=== PATIENT | female | born 1970 | race Caucasian/White ===

== ENCOUNTER 2024-01-22 20:01 | Inpatient (IN) | payer OTHER, SELFPAY ==
--- NOTE | ~2024-01-22 | XR_ITS ---
EXAMINATION: XR CHEST CLINICAL INFORMATION: Shortness of breath. Cough. COMPARISON: June 01, 2019. TECHNIQUE: PA view of the chest was obtained. FINDINGS: Limited evaluation of the retrocardiac region without the benefit of a lateral view; cannot confirm or exclude subtle retrocardiac focal infiltrate. No significant abnormality is noted involving the heart, remaining lungs, mediastinum, bony thorax or soft tissues. XR/XR chest 1V IMPRESSION: Findings as above. Electronically signed by: Mahesh Topete MD 01/22/2024 09:59 PM EDT
--- NOTE | ~2024-01-22 | XR_ITS ---
EXAMINATION: XR CHEST CLINICAL INFORMATION: Evaluation of retrocardiac opacity. COMPARISON: Chest radiograph 01/22/2024. TECHNIQUE: 2 views of the chest were obtained. FINDINGS: Normal appearance of the cardiomediastinal silhouette. Mild central peribronchial thickening without consolidation or pleural effusion. No pneumothorax. No acute osseous findings. XR/XR chest 2V IMPRESSION: Mild central peribronchial thickening which could be seen with a small airways process such as bronchitis and atypical/viral infection. No consolidation or pleural effusion. Electronically signed by: Darlin Musa MD 01/23/2024 08:28 AM EDT
[2024-01-22 20:03] VITALS: BP 124/76; PULSE 95; RESP 22; TEMP 36.7; O2SAT 92; BMI 27.4
--- NOTE | 2024-01-22 20:10 | ECG_ITS ---
Test Reason : CP Blood Pressure : / mmHG Vent. Rate : 095 BPM Atrial Rate : 095 BPM P-R Int : 196 ms QRS Dur : 090 ms QT Int : 370 ms P-R-T Axes : 073 072 059 degrees QTc Int : 464 ms Normal sinus rhythm Possible Left atrial enlargement Nonspecific ST and T wave abnormality Abnormal ECG When compared with ECG of 02-JUN-2019 00:00, Nonspecific T wave abnormality, worse in Anterior leads Referred By: Generic ED Physician Electronically Signed By:NAY CATALAN
[2024-01-22 20:43] LABS: MANUAL DIFF FLAG NO
[2024-01-22 20:47] LABS: Basophils Absolute Auto 0.1 X10*3/uL (0.0-0.2); Basophils Percent Auto 0.6 % (0-2); Eosinophils Absolute Auto 0.6 X10*3/uL (0.0-0.4); Eosinophils Percent Auto 5.4 % (0-4); Hematocrit 41.2 % (37.0-47.0); Hemoglobin 13.6 g/dl (12.0-16.0); Imm Gran Pct Auto 0.9 % (0.0-0.4); Lymphocytes Absolute Auto 4.2 X10*3/uL (1.2-4.9); Lymphocytes Percent Auto 36.3 % (20-40); Mean Corpuscular Hemoglobin 29.5 pg (27.0-33.0); Mean Corpuscular Volume 89.4 fL (80.0-98.0); Mean Platelet Volume 9.3 fL (9.4-12.3); Monocytes Absolute Auto 0.6 X10*3/uL (0.1-1.2); Monocytes Percent Auto 5.6 % (2-11); Neutrophils Absolute Auto 5.9 x10*3/uL (2.0-8.3); Neutrophils Percent Auto 51.2 % (45-73); Platelet Count 348 X10*3/uL (160-400); Red Blood Count 4.61 X10*6/uL (4.20-5.50); Red Cell Distribution Width 13.9 % (11.0-16.0); White Blood Count 11.5 X10*3/uL (4.8-10.8)
[2024-01-22 20:56] LABS: Anion Gap 14 (12-20); Blood Urea Nitrogen 11 mg/dL (9-16); Calcium 10.3 mg/dL (8.4-10.2); Carbon Dioxide 29 mmol/L (22-29); Chloride 100 mmol/L (96-108); Creatinine Clr Calc Pharmacy 74.5; Estimated Glomerular Filt Rate > 60; Glucose Random 316 mg/dL (60-115); Potassium 3.6 mmol/L (3.3-5.1); Sodium 139 mmol/L (135-145)
[2024-01-22 21:06] LABS: Troponin-I High Sensitivity < 2.7 ng/L (<3.5-17.0)
[2024-01-22 21:31] VITALS: BP 115/78; PULSE 89; RESP 14; TEMP 37.2; O2SAT 92
--- NOTE | 2024-01-22 21:39 | PC.NURSE ---
pt from wr to ed10. wheezing on inspiratory and expiratory. sats 93% on RA, hx COPD pt unsure of baseline o2. RT notified. resp even and unlabored. skin wpd. call rawls within reach.
[2024-01-22] MEDS: Albuterol Sulfate 7.5 MG, Albuterol Sulfate (0.083%) 2.5 MG 10 MG INHALE (21:53)
[2024-01-22 21:54] VITALS: PULSE 96; RESP 20; O2SAT 93
--- NOTE | 2024-01-22 22:17 | ED.SOB ---
HPI - SOB/Dyspnea General Chief Complaint: Dyspnea Stated Complaint: sob-copd/inhaler not helping Time Seen by Provider: 01/22/24 22:11 Source: patient Mode of arrival: ambulatory Limitations: no limitations History of Present Illness ED Provider: wale TEJEDA Narrative: Patient's history of asthma/COPD ex-smoker complaining of increased shortness of breath since yesterday with cough congestion mucopurulent expectoration no fever no chills patient's used to have nebulizer does not have any more noticed to be saturating 90-92% at room air on arrival Related Data Home Medications ?Medication ?Instructions ?Recorded ?Confirmed cyclobenzaprine 10 mg tablet 10 mg PO BEDTIME 10/01/22 fluticasone propionate 110 1 puff inhalation BID 10/01/22 mcg/actuation HFA aerosol inhaler (Flovent HFA) hydroxyzine HCl 50 mg tablet 50 mg PO BEDTIME PRN insomnia 10/01/22 lorazepam 0.5 mg tablet 0.5 mg PO BID PRN 10/01/22 meloxicam 7.5 mg tablet 7.5 mg PO DAILY 10/01/22 omeprazole 40 mg capsule,delayed 40 mg PO DAILY 10/01/22 release Previous Rx's ?Medication ?Instructions ?Recorded albuterol sulfate 2.5 mg/3 mL 2.5 mg (3 mL) inhalation Q4-6H PRN 01/23/24 (0.083 %) solution for nebulization shortness of breath or wheezing #90 mL albuterol sulfate 90 mcg/actuation 2 puff inhalation Q6H PRN 01/23/24 aerosol inhaler shortness of breath or wheezing #8.5 grams benzonatate 200 mg capsule 200 mg PO TID PRN cough #20 caps 01/23/24 cefuroxime axetil 500 mg tablet 500 mg PO BID 7 days #14 tabs 01/23/24 nebulizers (Compact Compressor #1 ea 01/23/24 Nebulizer) prednisone 20 mg tablet 40 mg (2 x 20 mg) PO DAILY #10 tabs 01/23/24 Allergies Allergy/AdvReac Type Severity Reaction Status Date / Time morphine [Morphine] Allergy Severe ANAPHYLAXIS Verified 01/22/24 20:08 latex [LATEX] Allergy Unknown RASH Verified 01/22/24 20:08 Codeine Sulfate Allergy Unknown Unknown Uncoded 01/22/24 20:08 Review of Systems Review of Systems: Yes all other systems are reviewed and are negative [facility] Past Medical History Medical History Anxiety History of tobacco use Liver hemangioma Centrilobular emphysema Surgical History Hx of bilateral breast reduction surgery [place] teeth extracted History of tubal ligation Hx of tonsillectomy Social History Social History Advance Directives: No Advance Directives Information Provided: No Physical Exam Vital Signs: Vital Signs: Last Vital Signs Temp 98.9 F 01/22/24 21:31 Pulse 100 01/22/24 22:30 Resp 20 01/22/24 22:30 BP 115/78 01/22/24 21:31 Pulse Ox 87 L 01/23/24 00:37 O2 Del Method Room Air 01/23/24 00:37 BMI result Body Mass Index 27.4 Appearance: Alert. Oriented X3. Frequent cough Eyes: No pallor or icterus ENT: Pharynx normal. Oral Mucosa moist Neck: Normal inspection. Neck supple. CVS: Normal heart rate and rhythm. Pulses normal. Respiratory: No respiratory distress. Equal air entry bilateral, bilateral wheezing Abdomen: Soft and nontender. Bowel sounds are present, no mass palpable, Skin: Skin warm and dry. Normal skin color. Normal skin turgor. Extremities: No lower extremity edema. No calf tenderness Neuro: Oriented X 3. No motor deficit. Medications Administered Generic Name Dose Route Start Last Admin Trade Name Freq PRN Reason Stop Dose Admin Sodium Chloride 1,000 mls @ 999 mls/hr 01/23/24 00:38 01/23/24 00:56 Ns IV 01/23/24 01:38 999 mls/hr .Q1H1M ONE Administration Discontinued Medications Generic Name Dose Route Start Last Admin Trade Name Freq PRN Reason Stop Dose Admin Albuterol Sulfate 7.5 mg/ 10 mg 01/22/24 21:48 01/22/24 21:53 Albuterol Sulfate 2.5 mg INHALE 01/22/24 21:49 10 mg ONCE ONE Administration Albuterol Sulfate 2.5 mg/ 0 mg 01/22/24 22:17 01/22/24 22:30 Albuterol/Ipratropium 3 ml INHALE 01/22/24 22:18 5 dose ONCE ONE Administration Dexamethasone 10 mg 01/22/24 22:17 01/22/24 22:45 Dexamethasone 2 Mg Tablet PO 01/22/24 22:18 10 mg ONCE ONE Administration Guaifenesin/Codeine Phosphate 10 ml 01/22/24 22:17 01/22/24 22:45 Guaifen/Codeine Sf 200/20/10ml 10 Ml Liquid PO 01/22/24 22:18 10 ml ONCE ONE Administration Ceftriaxone Sodium 1 gm/ 50 mls @ 100 mls/hr 01/23/24 00:38 01/23/24 01:15 Sodium Chloride IV 01/23/24 01:07 100 mls/hr ONCE ONE Administration Medical Decision Making Medical Decision Making [facility] Narrative: Patient's COPD/asthma with hypoxia after nebulizing treatment saturation dropped to 87% at room air patient does not have any oxygen at home chest x-ray questionable retrocardiac infiltrate will admit patient for continue nebulizer oxygen Differential Diagnosis Differential Diagnoses: The differential diagnosis associated with the presentation includes COPD/asthma/pneumonia/CHF/pneumothorax Lab Data [facility] Lab Attestation statement: I reviewed the patient's lab results. 01/22/24 20:36 01/22/24 20:36 Labs: Lab Results 01/22/24 01/22/24 Range/Units 20:36 21:47 WBC 11.5 H (4.8-10.8) X10*3/uL RBC 4.61 (4.20-5.50) X10*6/uL Hgb 13.6 (12.0-16.0) g/dl Hct 41.2 (37.0-47.0) % MCV 89.4 (80.0-98.0) fL MCH 29.5 (27.0-33.0) pg MCHC 33.0 (31.0-35.0) g/dl RDW 13.9 (11.0-16.0) % Plt Count 348 (160-400) X10*3/uL MPV 9.3 L (9.4-12.3) fL Immature Gran % (Auto) 0.9 H (0.0-0.4) % Neut % (Auto) 51.2 (45-73) % Lymph % (Auto) 36.3 (20-40) % [place] % (Auto) 5.6 (2-11) % Eos % (Auto) 5.4 H (0-4) % Baso % (Auto) 0.6 (0-2) % Lymph # (Auto) 4.2 (1.2-4.9) X10*3/uL [place] # (Auto) 0.6 (0.1-1.2) X10*3/uL Eos # (Auto) 0.6 H (0.0-0.4) X10*3/uL Baso # (Auto) 0.1 (0.0-0.2) X10*3/uL Abs Immat Gran (auto) 0.10 H (0.00-0.03) X10*3/uL Absolute Neuts (auto) 5.9 (2.0-8.3) x10*3/uL Absolute Nucleated RBC 0.000 (0.0-0.012) X10*3/uL Nucleated RBC % (auto) 0.0 (0.0-0.2) /100WBC Sodium 139 (135-145) mmol/L Potassium 3.6 (3.3-5.1) mmol/L Chloride 100 (96-108) mmol/L Carbon Dioxide 29 (22-29) mmol/L Anion Gap 14 (12-20) BUN 11 (9-16) mg/dL Creatinine 0.79 (0.5-1.4) mg/dL Estim Creat Clear Calc 74.5 Estimated GFR > 60 Random Glucose 316 H (60-115) mg/dL Calcium 10.3 H (8.4-10.2) mg/dL Troponin I High Sens < 2.7 (<3.5-17.0) ng/L Influenza Type A (PCR) NEGATIVE (Negative) Influenza Type B (PCR) NEGATIVE (Negative) RSV RNA Qual (PCR) NEGATIVE (Negative) SARS-CoV-2 RNA (RT-PCR) NEGATIVE (Negative) Independent Interpretation I performed an independent interpretation of an: Plain X-Ray Radiology Impression Discussion of test interpretation with radiology: I have reviewed the radiologist's reading. Critical Care Time Critical Care Time Critical Care Time: Yes Total Critical Care Time: 45 Attestation: The patient was critically ill with a high probability of imminent or life threatening deterioration. I spent greater than ?50??minutes of discontinuous time evaluating the patient,delivering critical care at the bedside, discussing and evaluating pertinent data with consultants. Critical care time does not include time spent performing separately billable procedures or teaching. Total time spent performing critical care was 45???minutes. Discharge Plan Discharge Clinical Impression: Acute bronchitis, Acute exacerbation of chronic obstructive airways disease Patient Disposition: Admitted As Inpatient Print Language: [place]
[2024-01-22 22:30] VITALS: PULSE 100; RESP 20; O2SAT 95
[2024-01-22] MEDS: Albuterol Sulfate 2.5 MG, Albuterol/Iprat 2.5/0.5MG 3 ML 3 ML INHALE (22:30)
[2024-01-22 22:31] LABS: Influenza A PCR NEGATIVE (Negative); Influenza B PCR NEGATIVE (Negative); Resp Syncy Virus RNA Qual PCR NEGATIVE (Negative); SARS COV2 PCR INHOUSE NEGATIVE (Negative)
[2024-01-22] MEDS: dexAMETHasone 2 MG TABLET 10 MG PO (22:45)
[2024-01-22] MEDS: guaiFEN/Codeine SF 200/20/10ML 10 ML LIQUID PO (22:45)
--- NOTE | 2024-01-22 22:45 | PC.NURSE ---
pt satting 86% placed on 2L per NC
[2024-01-23] VITALS (12 sets, daily range): BP systolic 121–146; BP diastolic 50–67; PULSE 100–123; RESP 16–20; TEMP 36.2–37.1; O2SAT 87–96
[2024-01-23] MEDS: 0.9 % Sodium Chloride 1,000 ML 999 ML IV (00:56)
[2024-01-23] MEDS: cefTRIAXone sodium 1 GM in 0.9 % Sodium Chloride 50 ML IV (01:15)
[2024-01-23] MEDS: Albuterol Sulfate (0.083%) 2.5 MG/3 ML VIAL.NEB 5 MG INHALE (01:34)
[2024-01-23 01:39] LABS: Lactic Acid 2.7 mmol/L (0.5-2.0)
--- NOTE | 2024-01-23 01:46 | PM.IMHP ---
History of Present Illness Date of Service: 01/23/24 Chief Complaint: Dyspnea This is a 53-year-old female with pertinent history of COPD not on home oxygen, mood disorder, former tobacco use disorder who presents to the emergency department for evaluation of dyspnea. Patient states her symptoms started 2 days prior to presentation. She has been having cough with yellowish sputum production. Subsequently started having wheezing and dyspnea which is worse with exertion. No fever or chills. No chest discomfort or palpitations. Patient states her symptoms did not relieve with home inhaler. She quit smoking in the last 1 year. No nausea, vomiting, abdominal pain, changes in urinary or bowel habits. In the emergency department, imaging with a retrocardiac infiltrate. Patient wheezing despite multiple DuoNeb treatments and requiring 2 L supplemental oxygen. Review of Systems Constitutional: Constitutional: Reports fatigue, Reports malaise and Reports poor appetite Cardiovascular: Cardiovascular: Reports dyspnea on exertion Respiratory: Respiratory: Reports cough, Reports dyspnea on exertion and Reports wheezing Gastrointestinal: Gastrointestinal: Reports no additional gastrointestinal complaints Genitourinary: Genitourinary: Reports no additional female genitourinary complaints Endocrine: Endocrine: Reports fatigue Allergic/Immunologic: Allergic/Immunologic: Reports wheezing [facility] Medical History Anxiety History of tobacco use Liver hemangioma Centrilobular emphysema Pertinent family history: No family history of early CAD Surgical History Hx of bilateral breast reduction surgery [place] teeth extracted History of tubal ligation Hx of tonsillectomy Social History Advance Directives: No Advance Directives Information Provided: No Meds Allergies Allergy/AdvReac Type Severity Reaction Status Date / Time morphine [Morphine] Allergy Severe ANAPHYLAXIS Verified 01/22/24 20:08 latex [LATEX] Allergy Unknown RASH Verified 01/22/24 20:08 Codeine Sulfate Allergy Unknown Unknown Uncoded 01/22/24 20:08 Home Medications ?Medication ?Instructions ?Recorded ?Confirmed ?Last Taken ?Type cyclobenzaprine 10 mg tablet 10 mg PO BEDTIME 10/01/22 Unknown History fluticasone propionate 110 1 puff inhalation BID 10/01/22 Unknown History mcg/actuation HFA aerosol inhaler (Flovent HFA) hydroxyzine HCl 50 mg tablet 50 mg PO BEDTIME PRN insomnia 10/01/22 Unknown History lorazepam 0.5 mg tablet 0.5 mg PO BID PRN 10/01/22 Unknown History meloxicam 7.5 mg tablet 7.5 mg PO DAILY 10/01/22 Unknown History omeprazole 40 mg capsule,delayed 40 mg PO DAILY 10/01/22 Unknown History release Physical Exam Vital Signs and Narrative: Vital Signs: Last Vital Signs Temp 98.9 F 01/22/24 21:31 Pulse 112 H 01/23/24 01:32 Resp 20 01/23/24 01:32 BP 115/78 01/22/24 21:31 Pulse Ox 87 L 01/23/24 00:37 O2 Del Method Room Air 01/23/24 00:37 BMI result Body Mass Index 27.4 Middle-aged female lying in bed in mild distress on supplemental oxygen Neck supple, no JVD Regular rate and rhythm, S1-S2 heard Bilateral wheezing appreciated Abdomen soft nontender, no guarding, no rigidity Patient is awake, alert and oriented to self, place, time and person ; no focal motor deficit Psych: Normal mood No pedal edema Results Labs 01/22/24 20:36 01/22/24 20:36 Labs: Laboratory Results - last 24 hr 01/22/24 01/22/24 01/23/24 20:36 21:47 01:13 MCV 89.4 MCH 29.5 MCHC 33.0 RDW 13.9 Plt Count 348 MPV 9.3 L Immature Gran % (Auto) 0.9 H Neut % (Auto) 51.2 Lymph % (Auto) 36.3 [place] % (Auto) 5.6 Eos % (Auto) 5.4 H Baso % (Auto) 0.6 Lymph # (Auto) 4.2 [place] # (Auto) 0.6 Eos # (Auto) 0.6 H Baso # (Auto) 0.1 Abs Immat Gran (auto) 0.10 H Absolute Neuts (auto) 5.9 Absolute Nucleated RBC 0.000 Nucleated RBC % (auto) 0.0 Anion Gap 14 Estim Creat Clear Calc 74.5 Estimated GFR > 60 Random Glucose 316 H Lactic Acid 2.7 H* Calcium 10.3 H Troponin I High Sens < 2.7 Influenza Type A (PCR) NEGATIVE Influenza Type B (PCR) NEGATIVE RSV RNA Qual (PCR) NEGATIVE SARS-CoV-2 RNA (RT-PCR) NEGATIVE Imaging Radiologist's Impressions: Impressions Chest X-Ray 01/22/24 20:10 IMPRESSION: Findings as above. Electronically signed by: Mahesh Topete MD 01/22/2024 09:59 PM EDT RP Assessment and Plan (1) Acute exacerbation of chronic obstructive airways disease: Status: Acute (2) Pneumonia: Status: Acute Plan This is a 53-year-old female with pertinent history of COPD not on home oxygen, mood disorder, former tobacco use disorder who presents to the emergency department for evaluation of dyspnea. #. Acute hypoxic respiratory failure due to pneumonia leading to acute exacerbation of COPD: Resuscitated with IV crystalloids. Lactic acid and blood culture obtained. Imaging with retrocardiac infiltrate. Initiating empiric antibiotics for cap. Sputum culture obtained. Initiating systemic steroids. Scheduled and p.r.n. DuoNebs. Continue home inhaler #. Acute lactic acidosis due to sepsis, hypoxia #. Mood disorder: Continue home mood stabilizers Med rec pending DVT prophylaxis: Lovenox Full code Admit as inpatient and will require two night minimum hospital stay for supplemental oxygen, IV antibiotics (as above), which is not possible in a lesser acute setting. Quality Stroke Does the patient have a stroke diagnosis?: No VTE Prior VTE?: No VTE Risk Level:: Medical - moderate - high VTE Device Contraindication: Treatment Not Indicated VTE Drug Contraindication: N/A - Med Ordered
--- NOTE | 2024-01-23 02:28 | PC.NURSE ---
pt refusing lovenox educated use of medication and risks associated with refusing med. pt verbalizes understanding and continues to refuse. MD aware.
[2024-01-23] MEDS: Azithromycin 500 MG in 0.9 % Sodium Chloride 250 ML 125 MG IV (02:37)
[2024-01-23] MEDS: LORazepam 0.5 MG TABLET PO ×3 (02:38→23:09)
[2024-01-23 03:18] LABS: Reflex Lactate? Lactic Acid Added
[2024-01-23 03:55] LABS: ~Lactic Acid-LAB USE ONLY 5.5 mmol/L (0.5-2.0)
[2024-01-23] MEDS: Benzonatate 100 MG CAPSULE 200 MG PO ×3 (05:16→20:59)
[2024-01-23 05:34] LABS: Reflex Lactate? 2 Y
[2024-01-23 06:24] LABS: MANUAL DIFF FLAG NO
[2024-01-23 06:55] LABS: Basophils Absolute Auto 0.1 X10*3/uL (0.0-0.2); Basophils Percent Auto 0.4 % (0-2); Eosinophils Absolute Auto 0.1 X10*3/uL (0.0-0.4); Eosinophils Percent Auto 0.5 % (0-4); Hematocrit 39.2 % (37.0-47.0); Hemoglobin 12.4 g/dl (12.0-16.0); Imm Gran Abs Auto 0.16 X10*3/uL (0.00-0.03); Imm Gran Pct Auto 1.3 % (0.0-0.4); Lymphocytes Absolute Auto 1.9 X10*3/uL (1.2-4.9); Mean Corpuscular HGB Conc 31.6 g/dl (31.0-35.0); Mean Corpuscular Hemoglobin 29.2 pg (27.0-33.0); Mean Corpuscular Volume 92.5 fL (80.0-98.0); Mean Platelet Volume 10.4 fL (9.4-12.3); Monocytes Absolute Auto 0.2 X10*3/uL (0.1-1.2); Monocytes Percent Auto 1.5 % (2-11); Neutrophils Absolute Auto 9.6 x10*3/uL (2.0-8.3); Neutrophils Percent Auto 80.3 % (45-73); Platelet Count 342 X10*3/uL (160-400); Red Blood Count 4.24 X10*6/uL (4.20-5.50); Red Cell Distribution Width 14.2 % (11.0-16.0)
[2024-01-23 06:56] LABS: Anion Gap 22 (12-20); Blood Urea Nitrogen 11 mg/dL (9-16); Calcium 9.1 mg/dL (8.4-10.2); Carbon Dioxide 18 mmol/L (22-29); Chloride 100 mmol/L (96-108); Estimated Glomerular Filt Rate 59; Potassium 3.5 mmol/L (3.3-5.1); Sodium 136 mmol/L (135-145)
[2024-01-23 07:16] LABS: Glucose Random 622 mg/dL (60-115)
[2024-01-23] MEDS: Insulin Regular, Human 100 UNIT/ML 10 ML VIAL IVPUSH (07:31)
[2024-01-23 07:33] LABS: Estimated Average Glucose 283 mg/dL; Hemoglobin A1C 326.1153 umol/L; Hemoglobin A1c % 11.5 % (<6.0); Total Hemoglobin (HGBA1C) 3191.6241 umol/L
--- NOTE | 2024-01-23 07:33 | PHA.MEDREC ---
Pharmacy Consult ? Medication Reconciliation Pharmacy has completed the medication reconciliation. Reviewed med rec done by Paige
[2024-01-23 07:36] LABS: Glucose, Whole Blood > 600 mg/dL (60-115)
[2024-01-23 07:47] LABS: Venous Blood Gas Refer to POC result
[2024-01-23 07:48] LABS: VBG Base Excess -6.2 mmol/L; VBG HCO3 17 mmol/L (22-26); VBG pCO2 29 mmHg; VBG pH 7.37 (7.32-7.43); VBG pO2 87 mmHg
[2024-01-23 08:00] LABS: Beta-Hydroxybutyrate 0.27 mmol/L (0.02-0.27)
[2024-01-23 08:13] LABS: Glucose, Whole Blood 581 mg/dL (60-115)
[2024-01-23] MEDS: Albuterol/Iprat 2.5/0.5MG 3 ML AMPUL.NEB INHALE ×3 (08:14→15:28)
[2024-01-23] MEDS: Omeprazole 40 MG CAPSULE.DR PO (08:17)
[2024-01-23] MEDS: Insulin Lispro 100 UNIT/ML 3 ML VIAL SUBCUT ×4 (08:17→21:01)
[2024-01-23] MEDS: 0.9 % Sodium Chloride Flush 3 ML SYRINGE IVFLUSH (08:22)
[2024-01-23 08:27] LABS: Procalcitonin 0.07 ng/mL
[2024-01-23] MEDS: Insulin Glargine,Hum.rec.anlog 100 UNIT/ML 10 ML VIAL 15 UNIT SUBCUT (09:21)
[2024-01-23] MEDS: methylPREDNISolone Sod Succ 40 MG/ML VIAL IVPUSH (09:23)
[2024-01-23 10:27] LABS: Glucose, Whole Blood 489 mg/dL (60-115)
--- NOTE | 2024-01-23 10:58 | MHC.CM.PN ---
pt lives w/ is indepednt had no serviues has own riude home dc plan home no servies
--- NOTE | 2024-01-23 11:26 | P.EN_ITS ---
Event Note Date of Service: 01/23/24 Event Note: Day hospitalist update S: breathing improved BG as high as 622 but not in DKA no prior dx of DM2 O: Temp Pulse Resp BP Pulse Ox O2 Del Method O2 Flow Rate 98.7 F 101 H 19 146/67 H 93 Room Air 2 01/23/24 07:31 01/23/24 11:18 01/23/24 11:18 01/23/24 07:31 01/23/24 07:01/23/24 07:01/23/24 04:55 Gen: in no acute distress HEENT: sclera anicteric, moist mucus membranes Neck: supple Lungs: diminished Heart: regular rate and rhythm, no murmurs Abd: soft, non-tender, non-distended Ext: no edema Skin: warm/well-perfused Neuro: alert and oriented x3, no focal findings Psych: appropriate affect Laboratory Results - last 24 hr 01/22/24 01/22/24 01/23/24 20:36 21:47 01:13 WBC 11.5 H RBC 4.61 Hgb 13.6 Hct 41.2 MCV 89.4 MCH 29.5 MCHC 33.0 RDW 13.9 Plt Count 348 MPV 9.3 L Immature Gran % (Auto) 0.9 H Neut % (Auto) 51.2 Lymph % (Auto) 36.3 [place] % (Auto) 5.6 Eos % (Auto) 5.4 H Baso % (Auto) 0.6 Lymph # (Auto) 4.2 [place] # (Auto) 0.6 Eos # (Auto) 0.6 H Baso # (Auto) 0.1 Abs Immat Gran (auto) 0.10 H Absolute Neuts (auto) 5.9 Absolute Nucleated RBC 0.000 Nucleated RBC % (auto) 0.0 VBG pH VBG pCO2 VBG pO2 VBG HCO3 VBG O2 Saturation VBG Base Excess Sodium 139 Potassium 3.6 Chloride 100 Carbon Dioxide 29 Anion Gap 14 BUN 11 Creatinine 0.79 Estim Creat Clear Calc 74.5 Estimated GFR > 60 POC Glucose Random Glucose 316 H Estimat Average Glucose Hemoglobin A1c % Lactic Acid 2.7 H* Lactic Acid F/U @ 2Hr Lactic Acid F/U @ 4Hr Calcium 10.3 H Troponin I High Sens < 2.7 Beta-Hydroxybutyrate Procalcitonin Influenza Type A (PCR) NEGATIVE Influenza Type B (PCR) NEGATIVE RSV RNA Qual (PCR) NEGATIVE SARS-CoV-2 RNA (RT-PCR) NEGATIVE 01/23/24 01/23/24 01/23/24 03:31 05:10 07:02 WBC 12.0 H RBC 4.24 Hgb 12.4 Hct 39.2 MCV 92.5 MCH 29.2 MCHC 31.6 RDW 14.2 Plt Count 342 MPV 10.4 Immature Gran % (Auto) 1.3 H Neut % (Auto) 80.3 H Lymph % (Auto) 16.0 L [place] % (Auto) 1.5 L Eos % (Auto) 0.5 Baso % (Auto) 0.4 Lymph # (Auto) 1.9 [place] # (Auto) 0.2 Eos # (Auto) 0.1 Baso # (Auto) 0.1 Abs Immat Gran (auto) 0.16 H Absolute Neuts (auto) 9.6 H Absolute Nucleated RBC 0.000 Nucleated RBC % (auto) 0.0 VBG pH VBG pCO2 VBG pO2 VBG HCO3 VBG O2 Saturation VBG Base Excess Sodium 136 Potassium 3.5 Chloride 100 Carbon Dioxide 18 L Anion Gap 22 H BUN 11 Creatinine 0.98 Estim Creat Clear Calc 60.0 Estimated GFR 59 POC Glucose Random Glucose 622 H* Estimat Average Glucose 283 Hemoglobin A1c % 11.5 H Lactic Acid Lactic Acid F/U @ 2Hr 5.5 H* Lactic Acid F/U @ 4Hr 9.0 H* Calcium 9.1 D Troponin I High Sens Beta-Hydroxybutyrate Procalcitonin 0.07 Influenza Type A (PCR) Influenza Type B (PCR) RSV RNA Qual (PCR) SARS-CoV-2 RNA (RT-PCR) 01/23/24 01/23/24 01/23/24 07:29 07:36 07:41 WBC RBC Hgb Hct MCV MCH MCHC RDW Plt Count MPV Immature Gran % (Auto) Neut % (Auto) Lymph % (Auto) [place] % (Auto) Eos % (Auto) Baso % (Auto) Lymph # (Auto) [place] # (Auto) Eos # (Auto) Baso # (Auto) Abs Immat Gran (auto) Absolute Neuts (auto) Absolute Nucleated RBC Nucleated RBC % (auto) VBG pH 7.37 VBG pCO2 29 VBG pO2 87 VBG HCO3 17 L VBG O2 Saturation 97.0 VBG Base Excess -6.2 Sodium Potassium Chloride Carbon Dioxide Anion Gap BUN Creatinine Estim Creat Clear Calc Estimated GFR POC Glucose > 600 H* Random Glucose Estimat Average Glucose Hemoglobin A1c % Lactic Acid Lactic Acid F/U @ 2Hr Lactic Acid F/U @ 4Hr Calcium Troponin I High Sens Beta-Hydroxybutyrate 0.27 Procalcitonin Influenza Type A (PCR) Influenza Type B (PCR) RSV RNA Qual (PCR) SARS-CoV-2 RNA (RT-PCR) 01/23/24 01/23/24 08:10 10:23 WBC RBC Hgb Hct MCV MCH MCHC RDW Plt Count MPV Immature Gran % (Auto) Neut % (Auto) Lymph % (Auto) [place] % (Auto) Eos % (Auto) Baso % (Auto) Lymph # (Auto) [place] # (Auto) Eos # (Auto) Baso # (Auto) Abs Immat Gran (auto) Absolute Neuts (auto) Absolute Nucleated RBC Nucleated RBC % (auto) VBG pH VBG pCO2 VBG pO2 VBG HCO3 VBG O2 Saturation VBG Base Excess Sodium Potassium Chloride Carbon Dioxide Anion Gap BUN Creatinine Estim Creat Clear Calc Estimated GFR POC Glucose 581 H* 489 H* Random Glucose Estimat Average Glucose Hemoglobin A1c % Lactic Acid Lactic Acid F/U @ 2Hr Lactic Acid F/U @ 4Hr Calcium Troponin I High Sens Beta-Hydroxybutyrate Procalcitonin Influenza Type A (PCR) Influenza Type B (PCR) RSV RNA Qual (PCR) SARS-CoV-2 RNA (RT-PCR) Impressions Chest X-Ray 01/23/24 07:40 IMPRESSION: Mild central peribronchial thickening which could be seen with a small airways process such as bronchitis and atypical/viral infection. No consolidation or pleural effusion. Electronically signed by: Darlin Musa MD 01/23/2024 08:28 AM EDT A/P: d1 53yo F with COPD not on hO2 and quit smoking 1 yr ago, anxiety presenting with dyspnea, admitted for hypoxia due to COPD exacerbation, found to have new-onset DM2 AHRF due to COPD exacerbation - wean O2 as tolerated, continue IV steroids, scheduled/prn nebs; continue azithromycin + d/c ceftriaxone as no evidence of lobar PNA and PCT is low new-onset DM2 with hyperglycemia - A1c 11.5; start basal-bolus insulin + MTF, will need insulin teaching + DM supplies + VNA upon discharge anxiety - continue home lorazepam VTE prophylaxis - enoxaparin dispo - TBD In my clinical judgment, the patient requires continued inpatient hospitalization for the following reasons: hypoxia, hyperglycemia Time Spent With Patient Time: Total time managing care of this patient today ____ minutes.
[2024-01-23 11:33] LABS: Glucose, Whole Blood 427 mg/dL (60-115)
[2024-01-23] MEDS: metFORMIN HCl 500 MG TABLET PO ×2 (11:43→16:40)
[2024-01-23] MEDS: Lactated Ringers 1,000 ML 100 ML IVCONT ×2 (13:32→23:40)
[2024-01-23 16:32] LABS: Glucose, Whole Blood 385 mg/dL (60-115)
[2024-01-23 20:40] LABS: Glucose, Whole Blood 316 mg/dL (60-115)
[2024-01-23] MEDS: Melatonin 3 MG TABLET 6 MG PO (20:58)
[2024-01-24] VITALS (8 sets, daily range): BP systolic 121–155; BP diastolic 58–75; PULSE 78–100; RESP 16–20; TEMP 36–36.7; O2SAT 92–99
[2024-01-24] MEDS: Azithromycin 500 MG in 0.9 % Sodium Chloride 250 ML 125 MG IV (01:09)
[2024-01-24] MEDS: Omeprazole 40 MG CAPSULE.DR PO (05:33)
[2024-01-24 06:24] LABS: Hematocrit 36.1 % (37.0-47.0); Hemoglobin 11.5 g/dl (12.0-16.0); Mean Corpuscular HGB Conc 31.9 g/dl (31.0-35.0); Mean Corpuscular Hemoglobin 28.7 pg (27.0-33.0); Mean Platelet Volume 10.1 fL (9.4-12.3); Platelet Count 331 X10*3/uL (160-400); Red Blood Count 4.01 X10*6/uL (4.20-5.50); Red Cell Distribution Width 14.5 % (11.0-16.0); White Blood Count 16.8 X10*3/uL (4.8-10.8)
[2024-01-24 07:08] LABS: Glucose, Whole Blood 312 mg/dL (60-115)
[2024-01-24 07:13] LABS: Anion Gap 13 (12-20); Blood Urea Nitrogen 13 mg/dL (9-16); Calcium 9.1 mg/dL (8.4-10.2); Carbon Dioxide 24 mmol/L (22-29); Chloride 105 mmol/L (96-108); Creatinine Clr Calc Pharmacy 61.9; Estimated Glomerular Filt Rate > 60; Potassium 3.7 mmol/L (3.3-5.1); Sodium 138 mmol/L (135-145)
[2024-01-24 07:35] LABS: Glucose Random 389 mg/dL (60-115)
[2024-01-24] MEDS: Insulin Glargine,Hum.rec.anlog 100 UNIT/ML 10 ML VIAL 15 UNIT SUBCUT (08:19)
[2024-01-24] MEDS: Insulin Lispro 100 UNIT/ML 3 ML VIAL SUBCUT ×4 (08:19→20:22)
[2024-01-24] MEDS: 0.9 % Sodium Chloride Flush 3 ML SYRINGE IVFLUSH ×3 (08:20→20:22)
[2024-01-24] MEDS: metFORMIN HCl 500 MG TABLET PO ×2 (08:20→16:50)
[2024-01-24] MEDS: methylPREDNISolone Sod Succ 40 MG/ML VIAL IVPUSH (08:20)
[2024-01-24] MEDS: Albuterol/Iprat 2.5/0.5MG 3 ML AMPUL.NEB INHALE ×4 (08:51→20:58)
[2024-01-24] MEDS: Benzonatate 100 MG CAPSULE 200 MG PO ×2 (09:40→20:21)
--- NOTE | 2024-01-24 10:45 | MHC.CM.PN ---
PER MD ROUNDS NOT MEDICALLY CLEARED FOR DC. DP: HOME W/ NEW [facility] FOR SN
[2024-01-24 11:17] LABS: Glucose, Whole Blood 318 mg/dL (60-115)
[2024-01-24] MEDS: LORazepam 0.5 MG TABLET PO (13:17)
--- NOTE | 2024-01-24 14:23 | PC.NURSE ---
Education provided to pt regarding SQ insulin injection and sliding scale use. Pt was able to successfully identity appropriate amount of insulin needed to cover lunch time blood sugar. Pt was also successful in giving own SQ injection with prompting and RN present.
[2024-01-24 16:18] LABS: Glucose, Whole Blood 368 mg/dL (60-115)
--- NOTE | 2024-01-24 18:15 | HO.PM.IMPN ---
Subjective Subjective Date of Service: 01/24/24 Interval History: No acute issues overnight. Notes some improvement since admission Review of Systems Denies chest pain Admits shortness of breath that has improved since admission Denies nausea vomiting diarrhea Denies fever chills Physical Exam Vital Signs: Vital Signs: Last Vital Signs Temp 96.9 F 01/24/24 15:47 Pulse 99 01/24/24 16:15 Resp 16 01/24/24 16:15 BP 155/71 H 01/24/24 15:47 Pulse Ox 93 01/24/24 15:47 O2 Del Method Room Air 01/24/24 15:47 O2 Flow Rate 2 01/23/24 15:16 BMI result Body Mass Index 27.4 Const: Other: Awake alert resting comfortably. Able to speak in full sentences Resp: Other: Diminished at bases with dense expiratory wheezes to inferior scapular border Cardio: Other: No S4; positive S1-S2; no S3 murmurs rubs or gallops GI: Other: Soft nontender nondistended normoactive bowel sounds Extrem: Other: No edema bilaterally Objective Data Active Medications Acetaminophen (Acetaminophen 325 Mg Tablet) 650 mg PO Q6H PRN PRN Reason: Pain, Mild (Pain Scale 1-3), fever or headache Albuterol/Ipratropium (Albuterol/Iprat 2.5/0.5mg 3 Ml Ampul.Neb) 3 ml INHALE RQ4H WHILE AWAKE [facility] Last Admin: 01/24/24 16:13 Dose: 3 ml Documented By: MIN Albuterol/Ipratropium (Albuterol/Iprat 2.5/0.5mg 3 Ml Ampul.Neb) 3 ml INHALE Q2H PRN PRN Reason: Wheezing Benzonatate (Benzonatate 100 Mg Capsule) 200 mg PO TID PRN PRN Reason: Cough Last Admin: 01/24/24 09:40 Dose: 200 mg Documented By: AYLA Calcium Carbonate (Calcium Carbonate 750 Mg Tab.Chew) 750 mg PO Q4H PRN PRN Reason: Heartburn Enoxaparin Sodium (Enoxaparin Sodium 40 Mg/0.4 Ml Syringe) 40 mg SUBCUT Q24H [facility] Last Admin: 01/24/24 01:11 Dose: Not Given Documented By: KELLY Non-Admin Reason: Patient Refused Glucose (Glucose Gel 15 Gm Gel..Gram.) 15 gm PO Q15M PRN; Protocol PRN Reason: per Hypoglycemia Standing Ord. Azithromycin 500 mg/ Sodium (Chloride) 250 mls @ 125 mls/hr IV Q24H [facility] Last Infusion: 01/24/24 03:09 Dose: Infused Documented By: KELLY Dextrose (D10) 250 mls @ 750 mls/hr IV Q15M PRN; Protocol PRN Reason: per Hypoglycemia Standing Ord. Insulin Glargine (Insulin Glargine,Hum.Rec.Anlog 100 Unit/Ml 10 Ml Vial) 15 unit SUBCUT DAILY [facility] Last Admin: 01/24/24 08:19 Dose: 15 unit Documented By: AYLA Insulin Human Lispro (Insulin Lispro 100 Unit/Ml 3 Ml Vial) 0 unit SUBCUT QIDACHS [facility]; Protocol Last Admin: 01/24/24 16:50 Dose: 15 unit Documented By: AYLA Lorazepam (Lorazepam 0.5 Mg Tablet) 0.5 mg PO BID PRN PRN Reason: Anxiety Last Admin: 01/24/24 13:17 Dose: 0.5 mg Documented By: YASEMIN Magnesium Hydroxide (Milk Of Magnesia 30 Ml Oral.Susp) 30 ml PO DAILY PRN PRN Reason: Constipation Melatonin (Melatonin 3 Mg Tablet) 6 mg PO BEDTIME PRN PRN Reason: Insomnia Last Admin: 01/23/24 20:58 Dose: 6 mg Documented By: KELLY Metformin HCl (Metformin Hcl 500 Mg Tablet) 500 mg PO BIDWM [facility] Last Admin: 01/24/24 16:50 Dose: 500 mg Documented By: AYLA Omeprazole (Omeprazole 40 Mg Capsule.Dr) 40 mg PO DAILY@0630 [facility] Last Admin: 01/24/24 05:33 Dose: 40 mg Documented By: KELLY Ondansetron HCl (Ondansetron Hcl 4 Mg/2 Ml Vial) 4 mg IVPUSH Q8H PRN PRN Reason: Nausea and Vomiting Sodium Chloride (0.9 % Sodium Chloride Flush 3 Ml Syringe) 3 ml IVFLUSH QSHIFT [facility] Last Admin: 01/24/24 16:49 Dose: 3 ml Documented By: AYLA Labs 01/24/24 05:15 09/30/24 05:15 Labs: Laboratory Results - last 24 hr 01/23/24 01/24/24 01/24/24 20:32 05:15 06:58 MCV 90.0 MCH 28.7 MCHC 31.9 RDW 14.5 Plt Count 331 MPV 10.1 Absolute Nucleated RBC 0.000 Nucleated RBC % (auto) 0.0 Anion Gap 13 Estim Creat Clear Calc 61.9 Estimated GFR > 60 POC Glucose 316 H 312 H Random Glucose 389 H* Calcium 9.1 01/24/24 01/24/24 11:13 16:12 MCV MCH MCHC RDW Plt Count MPV Absolute Nucleated RBC Nucleated RBC % (auto) Anion Gap Estim Creat Clear Calc Estimated GFR POC Glucose 318 H 368 H* Random Glucose Calcium Microbiology Microbiology Results: Microbiology 01/23/24 01:13 Blood Culture - Preliminary Blood - Venous No growth after 24 hours. 01/23/24 01:13 Blood Culture - Preliminary Blood - Venous No growth after 24 hours. Assessment and Plan (1) Pneumonia: Status: Acute (2) Acute exacerbation of chronic obstructive airways disease: Status: Acute Plan This is a 53-year-old female with pertinent history of COPD not on home oxygen, mood disorder, former tobacco use disorder who presents to the emergency department for evaluation of dyspnea. 1.Acute hypoxic respiratory failure due to pneumonia/acute exacerbation of COPD -ceftriaxone/azithromycin (2) -pulse dose methylprednisolone -aggressive DuoNeb therapy 2. Mood disorder -stable and well compensated -continue outpatient therapies Lovenox Full code Will require ongoing hospitalization for IV antibiotics to treat pneumonia along with IV steroids. Quality Stroke Does the patient have a stroke diagnosis?: No VTE Prior VTE?: No VTE Risk Level:: Medical - moderate - high VTE Device Contraindication: Treatment Not Indicated VTE Drug Contraindication: N/A - Med Ordered
[2024-01-24 20:05] LABS: Glucose, Whole Blood 315 mg/dL (60-115)
[2024-01-24] MEDS: Melatonin 3 MG TABLET 6 MG PO (20:21)
[2024-01-25] VITALS (8 sets, daily range): BP systolic 136–148; BP diastolic 70–83; PULSE 86–96; RESP 16–18; TEMP 36.4–36.6; O2SAT 90–94
[2024-01-25] MEDS: Azithromycin 500 MG in 0.9 % Sodium Chloride 250 ML 125 MG IV (03:19)
[2024-01-25] MEDS: Benzonatate 100 MG CAPSULE 200 MG PO ×2 (05:17→20:13)
[2024-01-25] MEDS: Omeprazole 40 MG CAPSULE.DR PO (05:17)
[2024-01-25 06:53] LABS: Hematocrit 37.1 % (37.0-47.0); Hemoglobin 11.7 g/dl (12.0-16.0); Mean Corpuscular HGB Conc 31.5 g/dl (31.0-35.0); Mean Corpuscular Hemoglobin 28.8 pg (27.0-33.0); Mean Corpuscular Volume 91.4 fL (80.0-98.0); Mean Platelet Volume 9.9 fL (9.4-12.3); NRBC Pct Auto 0.1 /100WBC (0.0-0.2); Platelet Count 315 X10*3/uL (160-400); Red Blood Count 4.06 X10*6/uL (4.20-5.50); Red Cell Distribution Width 14.6 % (11.0-16.0); White Blood Count 16.1 X10*3/uL (4.8-10.8)
[2024-01-25 07:05] LABS: Alanine Aminotransferase 21 U/L (0-31); Albumin Level 3.4 g/dL (3.5-5.0); Alkaline Phosphatase 103 U/L (39-117); Anion Gap 14 (12-20); Aspartate Amino Transferase 12 U/L (5-31); Bilirubin Total 0.2 mg/dL (0.0-1.0); Blood Urea Nitrogen 19 mg/dL (9-16); Calcium 9.2 mg/dL (8.4-10.2); Carbon Dioxide 28 mmol/L (22-29); Chloride 101 mmol/L (96-108); Creatinine Clr Calc Pharmacy 73.5; Estimated Glomerular Filt Rate > 60; Glucose Fasting 268 mg/dL (60-99); Potassium 4.1 mmol/L (3.3-5.1); Sodium 139 mmol/L (135-145); Total Protein 6.2 g/dL (6.5-8.0)
[2024-01-25 07:10] LABS: Band Neutrophils Percent 2 % (3-5); Basophils Abs Manual 0.3 X10*3/uL (0.0-0.2); Basophils Percent Manual 2 % (0-2); Lymphocytes Absolute Manual 4.3 X10*3/uL (1.2-4.9); Lymphocytes Percent Manual 27 % (20-40); Metamyelocytes Absolute 0.2 X10*3/uL; Metamyelocytes Percent 1 %; Monocytes Absolute Manual 0.6 X10*3/uL (0.1-1.2); Monocytes Percent Manual 4 % (2-11); Neutrophils Absolute Manual 10.6 X10*3/uL (2.0-8.3); Neutrophils Percent Manual 64 % (45-73); Nucleated Red Blood Cells 1 /100WBC (0-0)
[2024-01-25 07:11] LABS: Platelet Estimate NORMAL (NORMAL); Platelet Morphology Comment NORMAL; RBC Morphology NORMAL
[2024-01-25 07:28] LABS: Glucose, Whole Blood 215 mg/dL (60-115)
[2024-01-25] MEDS: Insulin Glargine,Hum.rec.anlog 100 UNIT/ML 10 ML VIAL 15 UNIT SUBCUT (07:56)
[2024-01-25] MEDS: 0.9 % Sodium Chloride Flush 3 ML SYRINGE IVFLUSH ×2 (07:57→16:45)
[2024-01-25] MEDS: Insulin Lispro 100 UNIT/ML 3 ML VIAL SUBCUT ×4 (07:57→20:13)
[2024-01-25] MEDS: metFORMIN HCl 500 MG TABLET PO ×2 (07:57→16:45)
[2024-01-25] MEDS: Albuterol/Iprat 2.5/0.5MG 3 ML AMPUL.NEB INHALE ×4 (09:25→19:57)
[2024-01-25 11:17] LABS: Glucose, Whole Blood 212 mg/dL (60-115)
--- NOTE | 2024-01-25 14:37 | HO.PM.IMPN ---
Subjective Subjective Date of Service: 01/25/24 Interval History: No acute issues overnight. Patient notes slow improvement in breathing Review of Systems Denies chest pain Admits shortness of breath that has improved since admission Denies nausea vomiting diarrhea Denies fever chills Physical Exam Vital Signs: Vital Signs: Last Vital Signs Temp 97.5 F 01/25/24 07:19 Pulse 86 01/25/24 12:10 Resp 18 01/25/24 12:10 BP 136/72 01/25/24 07:19 Pulse Ox 90 L 01/25/24 07:19 O2 Del Method Room Air 01/25/24 07:19 O2 Flow Rate 2 01/23/24 15:16 BMI result Body Mass Index 27.4 Const: Other: Awake alert resting comfortably. Able to speak in full sentences Resp: Other: Diminished at bases with dense expiratory wheezes to inferior scapular border Cardio: Other: No S4; positive S1-S2; no S3 murmurs rubs or gallops GI: Other: Soft nontender nondistended normoactive bowel sounds Extrem: Other: No edema bilaterally Objective Data Active Medications Acetaminophen (Acetaminophen 325 Mg Tablet) 650 mg PO Q6H PRN PRN Reason: Pain, Mild (Pain Scale 1-3), fever or headache Albuterol/Ipratropium (Albuterol/Iprat 2.5/0.5mg 3 Ml Ampul.Neb) 3 ml INHALE RQ4H WHILE AWAKE [facility] Last Admin: 01/25/24 12:10 Dose: 3 ml Documented By: LONNY Albuterol/Ipratropium (Albuterol/Iprat 2.5/0.5mg 3 Ml Ampul.Neb) 3 ml INHALE Q2H PRN PRN Reason: Wheezing Benzonatate (Benzonatate 100 Mg Capsule) 200 mg PO TID PRN PRN Reason: Cough Last Admin: 01/25/24 05:17 Dose: 200 mg Documented By: LEIA Calcium Carbonate (Calcium Carbonate 750 Mg Tab.Chew) 750 mg PO Q4H PRN PRN Reason: Heartburn Enoxaparin Sodium (Enoxaparin Sodium 40 Mg/0.4 Ml Syringe) 40 mg SUBCUT Q24H [facility] Last Admin: 01/25/24 03:20 Dose: Not Given Documented By: LEIA Non-Admin Reason: Patient Refused Glucose (Glucose Gel 15 Gm Gel..Gram.) 15 gm PO Q15M PRN; Protocol PRN Reason: per Hypoglycemia Standing Ord. Azithromycin 500 mg/ Sodium (Chloride) 250 mls @ 125 mls/hr IV Q24H [facility] Last Infusion: 01/25/24 05:40 Dose: Infused Documented By: LEIA Dextrose (D10) 250 mls @ 750 mls/hr IV Q15M PRN; Protocol PRN Reason: per Hypoglycemia Standing Ord. Insulin Glargine (Insulin Glargine,Hum.Rec.Anlog 100 Unit/Ml 10 Ml Vial) 15 unit SUBCUT DAILY [facility] Last Admin: 01/25/24 07:56 Dose: 15 unit Documented By: AYLA Insulin Human Lispro (Insulin Lispro 100 Unit/Ml 3 Ml Vial) 0 unit SUBCUT QIDACHS [facility]; Protocol Last Admin: 01/25/24 11:42 Dose: 6 unit Documented By: AYLA Lorazepam (Lorazepam 0.5 Mg Tablet) 0.5 mg PO BID PRN PRN Reason: Anxiety Last Admin: 01/24/24 13:17 Dose: 0.5 mg Documented By: YASEMIN Magnesium Hydroxide (Milk Of Magnesia 30 Ml Oral.Susp) 30 ml PO DAILY PRN PRN Reason: Constipation Melatonin (Melatonin 3 Mg Tablet) 6 mg PO BEDTIME PRN PRN Reason: Insomnia Last Admin: 01/24/24 20:21 Dose: 6 mg Documented By: LEIA Metformin HCl (Metformin Hcl 500 Mg Tablet) 500 mg PO BIDWM [facility] Last Admin: 01/25/24 07:57 Dose: 500 mg Documented By: AYLA Omeprazole (Omeprazole 40 Mg Capsule.Dr) 40 mg PO DAILY@0630 [facility] Last Admin: 01/25/24 05:17 Dose: 40 mg Documented By: LEIA Ondansetron HCl (Ondansetron Hcl 4 Mg/2 Ml Vial) 4 mg IVPUSH Q8H PRN PRN Reason: Nausea and Vomiting Sodium Chloride (0.9 % Sodium Chloride Flush 3 Ml Syringe) 3 ml IVFLUSH QSHIFT [facility] Last Admin: 01/25/24 07:57 Dose: 3 ml Documented By: AYLA Labs 01/25/24 05:10 01/25/24 05:10 Labs: Laboratory Results - last 24 hr 01/24/24 01/24/24 01/25/24 16:12 19:57 05:10 MCV 91.4 MCH 28.8 MCHC 31.5 RDW 14.6 Plt Count 315 MPV 9.9 Immature Gran % (Auto) Cancelled Neut % (Auto) Cancelled Lymph % (Auto) Cancelled Murray % (Auto) Cancelled Eos % (Auto) Cancelled Baso % (Auto) Cancelled Lymph # (Auto) Cancelled Murray # (Auto) Cancelled Eos # (Auto) Cancelled Baso # (Auto) Cancelled Abs Immat Gran (auto) Cancelled Absolute Neuts (auto) Cancelled Absolute Nucleated RBC 0.020 H Nucleated RBC % (auto) 0.1 Neutrophils % (Manual) 64 Band Neutrophils % 2 L Lymphocytes % (Manual) 27 Monocytes % (Manual) 4 Basophils % (Manual) 2 Metamyelocytes % 1 Abs Neuts (Manual) 10.6 H Lymphocytes # (Manual) 4.3 Monocytes # (Manual) 0.6 Basophils # (Manual) 0.3 H Metamyelocytes # 0.2 Nucleated RBCs 1 H Platelet Estimate NORMAL Plt Morphology Comment NORMAL RBC Morphology NORMAL Anion Gap 14 Estim Creat Clear Calc 73.5 Estimated GFR > 60 POC Glucose 368 H* 315 H Fasting Glucose 268 H Calcium 9.2 Total Bilirubin 0.2 AST 12 ALT 21 Alkaline Phosphatase 103 Total Protein 6.2 L Albumin 3.4 L 01/25/24 01/25/24 07:24 11:09 MCV MCH MCHC RDW Plt Count MPV Immature Gran % (Auto) Neut % (Auto) Lymph % (Auto) Murray % (Auto) Eos % (Auto) Baso % (Auto) Lymph # (Auto) Murray # (Auto) Eos # (Auto) Baso # (Auto) Abs Immat Gran (auto) Absolute Neuts (auto) Absolute Nucleated RBC Nucleated RBC % (auto) Neutrophils % (Manual) Band Neutrophils % Lymphocytes % (Manual) Monocytes % (Manual) Basophils % (Manual) Metamyelocytes % Abs Neuts (Manual) Lymphocytes # (Manual) Monocytes # (Manual) Basophils # (Manual) Metamyelocytes # Nucleated RBCs Platelet Estimate Plt Morphology Comment RBC Morphology Anion Gap Estim Creat Clear Calc Estimated GFR POC Glucose 215 H 212 H Fasting Glucose Calcium Total Bilirubin AST ALT Alkaline Phosphatase Total Protein Albumin Microbiology Microbiology Results: Microbiology 01/23/24 01:13 Blood Culture - Preliminary Blood - Venous No growth after 48 hours. 01/23/24 01:13 Blood Culture - Preliminary Blood - Venous No growth after 48 hours. Assessment and Plan (1) Pneumonia: Status: Acute (2) Acute exacerbation of chronic obstructive airways disease: Status: Acute Plan This is a 53-year-old female with pertinent history of COPD not on home oxygen, mood disorder, former tobacco use disorder who presents to the emergency department for evaluation of dyspnea. 1.Acute hypoxic respiratory failure due to pneumonia/acute exacerbation of COPD -ceftriaxone/azithromycin (3) -pulse dose methylprednisolone -aggressive DuoNeb therapy -will arrange with respiratory for home nebulizer 2. DM 2 -acceptable control on current therapies -lispro correctional scale -doing well with self administration; will order pens for sliding scale coverage along with metformin 3. Mood disorder -stable and well compensated -continue outpatient therapies Lovenox Full code Will require ongoing hospitalization for IV antibiotics to treat pneumonia along with IV steroids. Quality Stroke Does the patient have a stroke diagnosis?: No VTE Prior VTE?: No VTE Risk Level:: Medical - moderate - high VTE Device Contraindication: Treatment Not Indicated VTE Drug Contraindication: N/A - Med Ordered
[2024-01-25 16:05] LABS: Glucose, Whole Blood 225 mg/dL (60-115)
[2024-01-25 20:02] LABS: Glucose, Whole Blood 201 mg/dL (60-115)
[2024-01-25] MEDS: Melatonin 3 MG TABLET 6 MG PO (20:13)
[2024-01-25] MEDS: LORazepam 0.5 MG TABLET PO (20:16)
[2024-01-26] MEDS: Azithromycin 500 MG in 0.9 % Sodium Chloride 250 ML 125 MG IV (03:28)
[2024-01-26 04:00] VITALS: BP 130/70; PULSE 90; RESP 17; TEMP 36.2; O2SAT 94
[2024-01-26] MEDS: Omeprazole 40 MG CAPSULE.DR PO (05:26)
[2024-01-26 07:23] VITALS: BP 123/60; PULSE 91; RESP 18; TEMP 36.3; O2SAT 93
[2024-01-26 07:44] LABS: Glucose, Whole Blood 146 mg/dL (60-115)
[2024-01-26] MEDS: metFORMIN HCl 500 MG TABLET PO ×2 (08:21→16:06)
[2024-01-26] MEDS: 0.9 % Sodium Chloride Flush 3 ML SYRINGE IVFLUSH (08:24)
[2024-01-26] MEDS: Insulin Glargine,Hum.rec.anlog 100 UNIT/ML 10 ML VIAL 15 UNIT SUBCUT (08:25)
[2024-01-26] MEDS: Insulin Lispro 100 UNIT/ML 3 ML VIAL SUBCUT ×3 (08:25→16:31)
[2024-01-26 08:33] VITALS: PULSE 91; RESP 18; O2SAT 93
[2024-01-26] MEDS: ondansetron HCL 4 MG/2 ML VIAL IVPUSH (08:33)
[2024-01-26] MEDS: LORazepam 0.5 MG TABLET PO (08:33)
[2024-01-26] MEDS: Benzonatate 100 MG CAPSULE 200 MG PO ×2 (08:33→16:07)
[2024-01-26] MEDS: Albuterol/Iprat 2.5/0.5MG 3 ML AMPUL.NEB INHALE ×3 (08:33→15:24)
[2024-01-26 11:22] LABS: Glucose, Whole Blood 205 mg/dL (60-115)
--- NOTE | 2024-01-26 12:01 | MHC.CM.PN ---
Addendum entered by Nazia Oliveros 01/26/24 12:58: Patient is discharged to Home with [facility]. She will arrange for transport home. Clinical info including [facility] 2 [facility] have been sent to the agency. Original Note: Per MD rounds Patient may be ready for discharge today. [facility] has been referred if home services are needed.
[2024-01-26 12:11] VITALS: PULSE 88; RESP 18; O2SAT 92
--- NOTE | 2024-01-26 12:13 | P.DS_ITS ---
DS: Providers Provider Date of Service: 01/26/24 Date of admission: 01/23/24 01:43 Date of discharge: 01/26/24 Primary care physician: Jeff Arechiga III, MD DS: Diagnosis Discharge Diagnosis (1) Pneumonia: Status: Acute (2) Acute exacerbation of chronic obstructive airways disease: Status: Acute DS: Summary Hospital Course Hospital Course: 53-year-old female with pertinent history of COPD not on home oxygen, mood disorder, former tobacco use disorder who presents to the emergency department for evaluation of dyspnea. Patient states her symptoms started 2 days prior to presentation. She has been having cough with yellowish sputum production. Subsequently started having wheezing and dyspnea which is worse with exertion. No fever or chills. No chest discomfort or palpitations. Patient states her symptoms did not relieve with home inhaler. She quit smoking in the last 1 year. No nausea, vomiting, abdominal pain, changes in urinary or bowel habits. In the emergency department, imaging with a retrocardiac infiltrate. Patient wheezing despite multiple DuoNeb treatments and requiring 2 L supplemental oxygen. Hospital Course Patient was admitted to the general medical floor and started on pulse dose methylprednisolone IV ceftriaxone and azithromycin. She continued to improve over the course of her hospitalization. She did develop elevated blood sugars likely secondary to methylprednisolone. She was started on metformin and an insulin regimen with good control of her blood sugars. Over the last 48 hours she has been working with nursing and is comfortable with giving insulin and checking sugars. Her oxygen was able to be weaned off. At this time she is medically acceptable for discharge. Respiratory therapy has arrange for nebulizer to be delivered to her and supplies were ordered through pharmacy as well as a glucometer kit with supplies. She will be given a lispro pen and a sliding scale instruction. She will complete a course of an oral prednisone taper as well as a course of oral Ceftin to treat her pneumonia. She has a good understanding of these instructions. She will be discharged home with follow up with the PCP next available visit Time Attestation Discharge Coordination Time (in mins): 35 Quality: Safe Use of Opioids Does Pt have an Active Cancer Diagnosis on the Problem List?: No Quality: Stroke Does the patient have a stroke diagnosis?: No Physical Exam Vital Signs: Vital Signs: Last Vital Signs Temp 97.4 F 01/26/24 07:23 Pulse 88 01/26/24 12:11 Resp 18 01/26/24 12:11 BP 123/60 01/26/24 07:23 Pulse Ox 93 01/26/24 07:23 O2 Del Method Nasal Cannula 01/26/24 07:23 O2 Flow Rate 2 01/23/24 15:16 BMI result Body Mass Index 27.4 Const: Other: Awake alert resting comfortably. Able to speak in full sentences Resp: Other: Diminished at bases with dense expiratory wheezes to inferior scapular border Cardio: Other: No S4; positive S1-S2; no S3 murmurs rubs or gallops GI: Other: Soft nontender nondistended normoactive bowel sounds Extrem: Other: No edema bilaterally DS: Data Data Completed and Pending Labs on day of discharge: Laboratory Results - last 24 hr 01/25/24 01/25/24 01/26/24 16:02 19:58 07:22 POC Glucose 225 H 201 H 146 H 01/26/24 11:18 POC Glucose 205 H Preliminary micro results at discharge 01/23/24 01:13 Blood Culture - Preliminary Blood - Venous No growth after 48 hours. 01/23/24 01:13 Blood Culture - Preliminary Blood - Venous No growth after 48 hours. Discharge Plan Discharge Anticipated Discharge Date/Time: 01/26/24 11:49 Patient Disposition: Home Health Service Discharge Diagnosis: Acute exacerbation of COPD secondary to pneumonia Referrals: Jeff Arechiga III, MD [Primary Care Provider] - 1 Week Discharge Medications: New albuterol sulfate 90 mcg/actuation HFA aerosol inhaler 2 puff inhalation Q6H PRN (Reason: shortness of breath or wheezing) Qty: 8.5 0RF cefuroxime axetil 500 mg tablet 500 mg PO BID 7 Days Qty: 14 0RF (DME) nebulizers [Compact Compressor Nebulizer] [facility] [place] See Rx Instructions .ROUTE Qty: 1 0RF Rx Instructions: As directed metformin 500 mg Tablet 500 mg PO BIDWM Qty: 60 0RF ipratropium-albuterol 0.5 mg-3 mg(2.5 mg base)/3 mL Solution For Nebulization 3 ml inhalation RQ4H WHILE AWAKE Qty: 270 0RF prednisone 10 mg tablet See Rx Instructions .Route .COMPLEX Qty: 45 0RF Rx Instructions: 10 mg orally; 5 tabs p.o. daily x3 days; 4 tabs p.o. daily x3 days; 3 tabs daily x3 days; 2 tabs daily x3 days; 1 tab daily x3 days insulin lispro [Admelog SoloStar U-100 Insulin] 100 unit/mL insulin pen 1 sliding scale dose subcut USEASDIRECTD Qty: 15 2RF Rx Instructions: Blood Glucose (mg/dL) Less than or equal to 110 ---- Give (units): 0 111 to 150 Give (units): 2 151 to 200 Give (units): 4 201 to 250 Give (units): 6 251 to 300 Give (units): 9 301 to 350 Give (units): 12 Greater than 350 Give (units): 15 Call MD if Blood Glucose > : 350 (DME) pen needle, diabetic [Comfort EZ Pen [place]] 29 gauge x 1/2 needle See Rx Instructions .Route Qty: 100 1RF Rx Instructions: As directed (DME) blood-glucose meter Kit See Rx Instructions .Route Qty: 1 0RF Rx Instructions: As directed (DME) blood sugar diagnostic Strip See Rx Instructions .Route Qty: 100 1RF Rx Instructions: As directed alcohol swabs [Alcohol Prep Pads] Pads, Medicated See Rx Instructions .ROUTE .COMPLEX Qty: 100 0RF Rx Instructions: 1 pad topically QID AC/HS Continued fluticasone propionate 110 mcg/actuation Hfa Aerosol Inhaler 1 puff INHALATION BID lorazepam 0.5 mg tablet 0.5 mg PO BID PRN (Reason: Anxiety) omeprazole 40 mg capsule,delayed release(DR/EC) 40 mg PO DAILY Discharge Orders: Discharge Order (Routine); Ordered 01/26/24 Ordered By: Gianni Martinez Diet: Advance to usual diet Activity on Discharge: As tolerated Stand Alone Forms: Patient Portal Discharge page Print Language: Armenian Care Plan Goals: Resume all your medicines as taken prior to hospital. Health Concerns: You have developed type 2 diabetes. Metformin 500 twice daily has been added along with insulin 3 times a day before meals and at bedtime. Sliding scale instructions included in your discharge plan. Follow up with your PCP next available. [facility] will assist with your med management until seen by your physician Plan of Treatment: Ceftin 500 mg twice daily has been added to your regimen. Take until completed. Prednisone taper has been added; take with food and complete as ordered. Utilize the do neb solution every 4 hours as needed Assessment: See discharge summary
--- NOTE | 2024-01-26 12:58 | W.MHC.F2F ---
Service Date Service Date: 01/26/24 Encounter Date of encounter: 01/26/24 Encounter: Acute hospitalization Reasons for Services Signs and symptoms assessed: Continued assessment of respiratory status given COPD exacerbation; teach disease management related to new onset diabetes Reason for longterm: diabetic teaching, monitoring of unstable blood sugar, medication management and teach disease management Homebound: Leaving the home is medically contraindicated at this time without the asist of a device and/or another person due th the listed conditions above and below. Reason homebound: unsteady gait / fall risk and unable to drive Certification: Based on the above findings, I certify that this patient is confined to the home and needs intermittent longterm care, physical therapy and/or speech therapy, or continues to need occupational therapy. The patient is under my care, and I have initiated the establishment of the plan of care. The patient will be followed by a physician who will periodically review the plan of care. Time Spent With Patient Time: Total time managing care of this patient today ____ minutes.
[2024-01-26 15:06] VITALS: BP 113/61; PULSE 93; RESP 18; TEMP 36.4; O2SAT 94
[2024-01-26 15:35] VITALS: PULSE 93; RESP 18; O2SAT 93
[2024-01-26 16:05] LABS: Glucose, Whole Blood 152 mg/dL (60-115)
[2024-01-26] MEDS: Acetaminophen 325 MG TABLET 650 MG PO (16:05)
== END 2024-01-26 18:28 | disposition home health service (06) | DRG 139 ==
LOC: HO.ED 01-23 00:38 → HO.EDOVER 01-23 01:50 → HO.S3 01-23 03:31
PROVIDERS: Family Medicine; Admitting Provider Student in an Organized Health Care Education/Training Program; Emergency Provider Internal Medicine; PCP Internal Medicine; Visit Provider Hospitalist
DX: J18.9 Pneumonia, unspecified organism (principal); J96.01 Acute respiratory failure with hypoxia; J43.2 Centrilobular emphysema; E87.21 Acute metabolic acidosis; E11.65 Type 2 diabetes mellitus with hyperglycemia; F41.9 Anxiety disorder, unspecified; F39 Unspecified mood [affective] disorder; Z20.822 Contact with and (suspected) exposure to COVID-19; Z87.891 Personal history of nicotine dependence; Z91.040 Latex allergy status; Z79.899 Other long term (current) drug therapy
CPT/HCPCS: 0241U; 36415; 71045; 71046; 80048; 80053; 82010; 82803; 82947; 83036; 83605; 84145; 84484; 85007; 85025; 85027; 87040; 93005; 94640; 99285; J0456; J0696; J2405; J2919; J7120; J8540

== ENCOUNTER → 2024-01-23 01:43 | Outpatient (BNV) | payer OTHER, SELFPAY | PROVIDERS: Admitting Provider Student in an Organized Health Care Education/Training Program; Emergency Provider Internal Medicine; PCP Internal Medicine; Visit Provider Student in an Organized Health Care Education/Training Program | DX: J18.9 Pneumonia, unspecified organism (principal); J44.1 Chronic obstructive pulmonary disease with (acute) exacerbation | CPT/HCPCS: 99222; 99232; 99239; 99499; G0180 ==

== ENCOUNTER 2024-02-12 19:41 | Emergency (ER) | payer OTHER, SELFPAY ==
[2024-02-12 19:56] VITALS: BP 154/72; PULSE 91; RESP 16; TEMP 36.4; O2SAT 96; BMI 35.4
--- NOTE | 2024-02-12 19:57 | ED_ITS ---
HPI - General Adult General Chief complaint: General Medical Stated complaint: out of insulin strips/doesn't feel good Time Seen by Provider: 02/12/24 22:20 Source: patient Mode of arrival: ambulatory Limitations: no limitations History of Present Illness ED Provider: wale TEJEDA narrative: Patient with new diagnose of diabetes diagnose on 01/23 comes here as she ran out of her testing strips been nauseated vomited few times earlier does not feel good has some mild cough her son was sick with same blood sugar on arrival was 264 labs were done which were negative for ketoacidosis Related Data Home Medications ?Medication ?Instructions ?Recorded ?Confirmed lorazepam 0.5 mg tablet 0.5 mg PO BID PRN Anxiety 10/01/22 01/23/24 omeprazole 40 mg capsule,delayed 40 mg PO DAILY 10/01/22 01/23/24 release fluticasone propionate 110 1 puff inhalation BID 01/23/24 01/23/24 mcg/actuation HFA aerosol inhaler Previous Rx's ?Medication ?Instructions ?Recorded albuterol sulfate 90 mcg/actuation 2 puff inhalation Q6H PRN 01/23/24 aerosol inhaler shortness of breath or wheezing #8.5 grams cefuroxime axetil 500 mg tablet 500 mg PO BID 7 days #14 tabs 01/23/24 nebulizers (Compact Compressor #1 ea 01/23/24 Nebulizer) alcohol swabs (Alcohol Prep Pads) See Rx Instructions .Route 01/26/24 .COMPLEX #100 ea blood sugar diagnostic #100 ea 01/26/24 blood-glucose meter #1 ea 01/26/24 insulin lispro 100 unit/mL 1 sliding scale dose subcut 01/26/24 subcutaneous pen (Admelog SoloStar USEASDIRECTD #15 mL U-100 Insulin lispro) ipratropium 0.5 mg-albuterol 3 mg 3 ml inhalation RQ4H WHILE AWAKE 01/26/24 (2.5 mg base)/3 mL nebulization #270 mL soln metformin 500 mg tablet 500 mg PO BIDWM #60 tabs 01/26/24 pen needle, diabetic 29 gauge x #100 ea 01/26/24 1/2 (Comfort EZ Pen [place]) prednisone 10 mg tablet See Rx Instructions .Route 01/26/24 .COMPLEX #45 tabs blood sugar diagnostic (FreeStyle #100 ea 02/12/24 Lite Strips) Allergies Allergy/AdvReac Type Severity Reaction Status Date / Time morphine [Morphine] Allergy Severe ANAPHYLAXIS Verified 02/12/24 20:00 latex [LATEX] Allergy Unknown RASH Verified 02/12/24 20:00 Codeine Sulfate Allergy Unknown Unknown Uncoded 01/22/24 20:08 Review of Systems 2 Review of Systems: Yes all other systems are reviewed and are negative [facility] Past Medical History Medical History Anxiety History of tobacco use Liver hemangioma Centrilobular emphysema Surgical History Hx of bilateral breast reduction surgery [place] teeth extracted History of tubal ligation Hx of tonsillectomy Social History Social History Household Members: Spouse and Children Housing: House Do you presently have visiting nurse or other home services: No Patient Tobacco Use Status: Former Tobacco user Smoked in Last 30 Days: No Use of substances other than those prescribed or required for medical reasons: No Advance Directives: No Do you have a plan to hurt others: No Plan service: No Physical Exam ED Vital Signs: Vital Signs - 24 hr 02/12/24 19:56 02/12/24 22:52 Temperature 97.6 F 97.6 F Pulse Rate 91 91 Respiratory Rate 16 16 Blood Pressure 154/72 H 154/72 H Pulse Oximetry 96 96 Oxygen Delivery Method Room Air Room Air BMI result Body Mass Index 35.4 Appearance: Alert. Oriented X3. No acute distress. Eyes: No pallor or icterus ENT: Pharynx normal. Oral Mucosa moist Neck: Normal inspection. Neck supple. CVS: Normal heart rate and rhythm. Pulses normal. Respiratory: No respiratory distress. Equal air entry bilateral, no wheezing/rales/rhonchi Abdomen: Soft and nontender. Bowel sounds are present, no mass palpable, no CVA tenderness Skin: Skin warm and dry. Normal skin color. Normal skin turgor. Extremities: No lower extremity edema. No calf tenderness Neuro: Oriented X 3. Course Course Course Narrative: This is a Rapid Medical Exam performed in triage by Tessa Márquez PA-C. Full HPI, ROS and PE to be performed by primary ED provider. 53-year-old female with past medical history of new onset diabetes Dx in December, presenting to the ED c/o being out of glucoce strip x this morning and cannot get into see PCP. Admits POCs have been running HIGH (400's). Is on Metformin & insulin (admits took metformin today but not insulin) PE: Nontoxic appearing, talking in complete sentences. No respiratory distress. Plan: labs, UA Medical Decision Making Medical Decision Making MDM Narrative: Patient freestyle strips were refilled Lab Data MDM Lab Attestation statement: I reviewed the patient's lab results. 02/12/24 20:14 02/12/24 20:14 Labs: Lab Results 02/12/24 02/12/24 02/12/24 Range/Units 20:02 20:11 20:14 WBC 10.2 (4.8-10.8) X10*3/uL RBC 4.41 (4.20-5.50) X10*6/uL Hgb 12.8 (12.0-16.0) g/dl Hct 40.1 (37.0-47.0) % MCV 90.9 (80.0-98.0) fL MCH 29.0 (27.0-33.0) pg MCHC 31.9 (31.0-35.0) g/dl RDW 14.0 (11.0-16.0) % Plt Count 340 (160-400) X10*3/uL MPV 9.6 (9.4-12.3) fL Immature Gran % (Auto) 0.7 H (0.0-0.4) % Neut % (Auto) 52.4 (45-73) % Lymph % (Auto) 37.7 (20-40) % [place] % (Auto) 5.6 (2-11) % Eos % (Auto) 2.8 (0-4) % Baso % (Auto) 0.8 (0-2) % Lymph # (Auto) 3.9 (1.2-4.9) X10*3/uL [place] # (Auto) 0.6 (0.1-1.2) X10*3/uL Eos # (Auto) 0.3 (0.0-0.4) X10*3/uL Baso # (Auto) 0.1 (0.0-0.2) X10*3/uL Abs Immat Gran (auto) 0.07 H (0.00-0.03) X10*3/uL Absolute Neuts (auto) 5.4 (2.0-8.3) x10*3/uL Absolute Nucleated RBC 0.000 (0.0-0.012) X10*3/uL Nucleated RBC % (auto) 0.0 (0.0-0.2) /100WBC VBG pH (7.32-7.43) VBG pCO2 mmHg VBG pO2 mmHg VBG HCO3 (22-26) mmol/L VBG O2 Saturation % VBG Base Excess mmol/L Sodium 139 (135-145) mmol/L Potassium 4.6 (3.3-5.1) mmol/L Chloride 101 (96-108) mmol/L Carbon Dioxide 31 H (22-29) mmol/L Anion Gap 12 (12-20) BUN 14 (9-16) mg/dL Creatinine 0.73 (0.5-1.4) mg/dL Estim Creat Clear Calc 88.1 Estimated GFR > 60 POC Glucose 262 H (60-115) mg/dL Random Glucose 264 H (60-115) mg/dL Calcium 9.5 (8.4-10.2) mg/dL Magnesium 2.0 (1.6-2.6) mg/dL Total Bilirubin 0.1 (0.0-1.0) mg/dL Direct Bilirubin < 0.2 (0.0-0.5) mg/dL AST 14 (5-31) U/L ALT 26 (0-31) U/L Alkaline Phosphatase 120 H (39-117) U/L Total Protein 6.7 (6.5-8.0) g/dL Albumin 3.8 (3.5-5.0) g/dL Beta-Hydroxybutyrate 0.05 (0.02-0.27) mmol/L Urine Color Yellow Urine Appearance Clear Urine pH 7.0 (5.0-9.0) Ur Specific [place] 1.020 (1.005-1.025) Urine Protein Negative (Neg-Trace) mg/dL Urine Glucose (UA) >=1000 H (Negative) mg/dL Urine Ketones Negative (Negative) mg/dL Urine Blood Negative (Negative) Urine Nitrite Negative (Negative) Ur Leukocyte Esterase Negative (Negative) Urine RBC 0-2 (0-2) /HPF Urine WBC 0-5 (0-5) /HPF Ur Squamous Epith Cells 0-2 (0-2) /HPF Urine Bacteria None Seen (None Seen) Hyaline Casts 0-2 (0-2) /LPF COVID-19 (SHASHI) (Negative) COVID-19 Clin Com 02/12/24 02/12/24 Range/Units 20:22 22:44 WBC (4.8-10.8) X10*3/uL RBC (4.20-5.50) X10*6/uL Hgb (12.0-16.0) g/dl Hct (37.0-47.0) % MCV (80.0-98.0) fL MCH (27.0-33.0) pg MCHC (31.0-35.0) g/dl RDW (11.0-16.0) % Plt Count (160-400) X10*3/uL MPV (9.4-12.3) fL Immature Gran % (Auto) (0.0-0.4) % Neut % (Auto) (45-73) % Lymph % (Auto) (20-40) % [place] % (Auto) (2-11) % Eos % (Auto) (0-4) % Baso % (Auto) (0-2) % Lymph # (Auto) (1.2-4.9) X10*3/uL [place] # (Auto) (0.1-1.2) X10*3/uL Eos # (Auto) (0.0-0.4) X10*3/uL Baso # (Auto) (0.0-0.2) X10*3/uL Abs Immat Gran (auto) (0.00-0.03) X10*3/uL Absolute Neuts (auto) (2.0-8.3) x10*3/uL Absolute Nucleated RBC (0.0-0.012) X10*3/uL Nucleated RBC % (auto) (0.0-0.2) /100WBC VBG pH 7.45 H (7.32-7.43) VBG pCO2 46 mmHg VBG pO2 50 mmHg VBG HCO3 32 H (22-26) mmol/L VBG O2 Saturation 82.0 % VBG Base Excess 7.6 mmol/L Sodium (135-145) mmol/L Potassium (3.3-5.1) mmol/L Chloride (96-108) mmol/L Carbon Dioxide (22-29) mmol/L Anion Gap (12-20) BUN (9-16) mg/dL Creatinine (0.5-1.4) mg/dL Estim Creat Clear Calc Estimated GFR POC Glucose (60-115) mg/dL Random Glucose (60-115) mg/dL Calcium (8.4-10.2) mg/dL Magnesium (1.6-2.6) mg/dL Total Bilirubin (0.0-1.0) mg/dL Direct Bilirubin (0.0-0.5) mg/dL AST (5-31) U/L ALT (0-31) U/L Alkaline Phosphatase (39-117) U/L Total Protein (6.5-8.0) g/dL Albumin (3.5-5.0) g/dL Beta-Hydroxybutyrate (0.02-0.27) mmol/L Urine Color Urine Appearance Urine pH (5.0-9.0) Ur Specific [place] (1.005-1.025) Urine Protein (Neg-Trace) mg/dL Urine Glucose (UA) (Negative) mg/dL Urine Ketones (Negative) mg/dL Urine Blood (Negative) Urine Nitrite (Negative) Ur Leukocyte Esterase (Negative) Urine RBC (0-2) /HPF Urine WBC (0-5) /HPF Ur Squamous Epith Cells (0-2) /HPF Urine Bacteria (None Seen) Hyaline Casts (0-2) /LPF COVID-19 (SHASHI) Negative (Negative) COVID-19 Clin Com See Note Discharge Plan Discharge Clinical Impression: New onset type 2 diabetes mellitus Patient Disposition: Home, Self-Care Instructions: Type 2 Diabetes Management for Adults (ED) Additional Instructions: Take your insulin on time Follow with your PCP as needed Prescriptions: New (DME) FreeStyle Lite Strips Strip See Rx Instructions .Route Qty: 100 0RF Rx Instructions: As directed No Action albuterol sulfate 90 mcg/actuation HFA aerosol inhaler 2 puff inhalation Q6H PRN (Reason: shortness of breath or wheezing) Qty: 8.5 0RF cefuroxime axetil 500 mg tablet 500 mg PO BID 7 Days Qty: 14 0RF (DME) nebulizers [Compact Compressor Nebulizer] [facility] See Rx Instructions .ROUTE Qty: 1 0RF Rx Instructions: As directed fluticasone propionate 110 mcg/actuation Hfa Aerosol Inhaler 1 puff INHALATION BID metformin 500 mg Tablet 500 mg PO BIDWM Qty: 60 0RF ipratropium-albuterol 0.5 mg-3 mg(2.5 mg base)/3 mL Solution For Nebulization 3 ml inhalation RQ4H WHILE AWAKE Qty: 270 0RF prednisone 10 mg tablet See Rx Instructions .Route .COMPLEX Qty: 45 0RF Rx Instructions: 10 mg orally; 5 tabs p.o. daily x3 days; 4 tabs p.o. daily x3 days; 3 tabs daily x3 days; 2 tabs daily x3 days; 1 tab daily x3 days insulin lispro [Admelog SoloStar U-100 Insulin] 100 unit/mL insulin pen 1 sliding scale dose subcut USEASDIRECTD Qty: 15 2RF Rx Instructions: Blood Glucose (mg/dL) Less than or equal to 110 ---- Give (units): 0 111 to 150 Give (units): 2 151 to 200 Give (units): 4 201 to 250 Give (units): 6 251 to 300 Give (units): 9 301 to 350 Give (units): 12 Greater than 350 Give (units): 15 Call MD if Blood Glucose > : 350 (DME) pen needle, diabetic [Comfort EZ Pen [place]] 29 gauge x 1/2 needle See Rx Instructions .Route Qty: 100 1RF Rx Instructions: As directed (DME) blood-glucose meter Kit See Rx Instructions .Route Qty: 1 0RF Rx Instructions: As directed (DME) blood sugar diagnostic Strip See Rx Instructions .Route Qty: 100 1RF Rx Instructions: As directed alcohol swabs [Alcohol Prep Pads] Pads, Medicated See Rx Instructions .ROUTE .COMPLEX Qty: 100 0RF Rx Instructions: 1 pad topically QID AC/HS lorazepam 0.5 mg tablet 0.5 mg PO BID PRN (Reason: Anxiety) omeprazole 40 mg capsule,delayed release(DR/EC) 40 mg PO DAILY Interventions: ED Discharge Assessment Last Done: 02/12/24 22:52 Discharge Date/Time: 02/12/24 22:53 Print Language: Malay
[2024-02-12 20:06] LABS: Glucose, Whole Blood 262 mg/dL (60-115)
[2024-02-12 20:23] LABS: MANUAL DIFF FLAG NO
[2024-02-12 20:24] LABS: Appearance Urine Clear; Color Urine Yellow; Glucose Urine UA >=1000 mg/dL (Negative); Leukocyte Esterase Urine Negative (Negative); Nitrite Urine Negative (Negative); UMIC TRIGGER UACC YES; Urine Blood Negative (Negative); Urine Ketones Negative (Negative); Urine Protein Negative (Neg-Trace)
[2024-02-12 20:26] LABS: Basophils Absolute Auto 0.1 X10*3/uL (0.0-0.2); Basophils Percent Auto 0.8 % (0-2); Eosinophils Absolute Auto 0.3 X10*3/uL (0.0-0.4); Eosinophils Percent Auto 2.8 % (0-4); Hematocrit 40.1 % (37.0-47.0); Hemoglobin 12.8 g/dl (12.0-16.0); Imm Gran Abs Auto 0.07 X10*3/uL (0.00-0.03); Imm Gran Pct Auto 0.7 % (0.0-0.4); Lymphocytes Absolute Auto 3.9 X10*3/uL (1.2-4.9); Lymphocytes Percent Auto 37.7 % (20-40); Mean Corpuscular HGB Conc 31.9 g/dl (31.0-35.0); Mean Corpuscular Volume 90.9 fL (80.0-98.0); Mean Platelet Volume 9.6 fL (9.4-12.3); Monocytes Absolute Auto 0.6 X10*3/uL (0.1-1.2); Monocytes Percent Auto 5.6 % (2-11); Neutrophils Absolute Auto 5.4 x10*3/uL (2.0-8.3); Neutrophils Percent Auto 52.4 % (45-73); Platelet Count 340 X10*3/uL (160-400); Red Blood Count 4.41 X10*6/uL (4.20-5.50); White Blood Count 10.2 X10*3/uL (4.8-10.8)
[2024-02-12 20:26] LABS: VBG Base Excess 7.6 mmol/L; VBG HCO3 32 mmol/L (22-26); VBG pCO2 46 mmHg; VBG pH 7.45 (7.32-7.43); VBG pO2 50 mmHg
[2024-02-12 20:29] LABS: Bacteria Urine None Seen (None Seen); Hyaline Casts Urine 0-2 /LPF (0-2); RBC Urine 0-2 /HPF (0-2); Squamous Epithelial Cell Urine 0-2 /HPF (0-2); WBC Urine 0-5 /HPF (0-5)
[2024-02-12 20:35] LABS: Venous Blood Gas Refer to POC result
[2024-02-12 20:44] LABS: Alanine Aminotransferase 26 U/L (0-31); Albumin Level 3.8 g/dL (3.5-5.0); Alkaline Phosphatase 120 U/L (39-117); Anion Gap 12 (12-20); Aspartate Amino Transferase 14 U/L (5-31); Bilirubin Direct < 0.2 mg/dL (0.0-0.5); Bilirubin Total 0.1 mg/dL (0.0-1.0); Blood Urea Nitrogen 14 mg/dL (9-16); Calcium 9.5 mg/dL (8.4-10.2); Carbon Dioxide 31 mmol/L (22-29); Chloride 101 mmol/L (96-108); Creatinine Clr Calc Pharmacy 88.1; Estimated Glomerular Filt Rate > 60; Glucose Random 264 mg/dL (60-115); Potassium 4.6 mmol/L (3.3-5.1); Sodium 139 mmol/L (135-145); Total Protein 6.7 g/dL (6.5-8.0)
[2024-02-12 20:55] LABS: Beta-Hydroxybutyrate 0.05 mmol/L (0.02-0.27)
--- NOTE | 2024-02-12 22:48 | PC.NURSE ---
pt educated on importance of checking blood sugar, given print out for GoodRx coupons.
[2024-02-12 22:52] VITALS: BP 154/72; PULSE 91; RESP 16; TEMP 36.4; O2SAT 96
[2024-02-12 23:04] LABS: COVID-19 Test Negative (Negative); IDNOW Serial# 152EDE1D
== END 2024-02-12 22:53 | disposition home or self-care (01) ==
PROVIDERS: Physician Assistant; Emergency Provider Internal Medicine; PCP Internal Medicine
DX: E11.9 Type 2 diabetes mellitus without complications (principal); R11.2 Nausea with vomiting, unspecified; R05.9 Cough, unspecified; Z11.52 Encounter for screening for COVID-19; Z79.899 Other long term (current) drug therapy
CPT/HCPCS: 36415; 80048; 80076; 81001; 82010; 82803; 82947; 83735; 85025; 87635; 99284

== ENCOUNTER 2025-02-06 14:48 | Outpatient (AMB) | payer OTHER, SELFPAY ==
--- NOTE | 2025-02-06 14:56 | MHC.OFFVIS ---
Vital Signs 02/06/25 14:57 Height 5 ft 1 in Weight 165 lb BMI 31.2 BP 122/70 Blood Pressure Location Lt brachial Position Sitting Pulse 91 Pulse Oximetry (%) 98 Oxygen Delivery Method Room Air Intake Visit Reasons: Gerd and colo screen Intake Note: Patient new consult for GERD and pre EGD/Colonoscopy screening. Patient cc: GERD, abdominal pain and bloating, some swallowing and itching throat, and denies any other GI issues. Pulmonology Physician Required: No Accompanied by: Self / Same As Patient Allergies morphine (Morphine) Allergy (Severe, Verified 02/06/25 14:56) ANAPHYLAXIS latex (LATEX) Allergy (Unknown, Verified 02/06/25 14:56) RASH Codeine Sulfate Allergy (Unknown, Uncoded 01/22/24 20:08) Unknown Medication List - Last Reconciled 02/06/25 by Cary Barr CNP albuterol sulfate 90 mcg/actuation 2 puffs inhalation Q6H PRN alcohol swabs (Alcohol Prep Pads) 1 pad topically QID AC/HS blood sugar diagnostic As directed blood sugar diagnostic (FreeStyle Lite Strips) As directed blood-glucose meter As directed cefuroxime axetil 500 mg PO BID 7 days fluticasone propionate 110 mcg/actuation 1 puff inhalation BID insulin lispro (Admelog SoloStar U-100 Insulin lispro) 1 sliding scale dose subcut USEASDIRECTD ipratropium-albuterol 0.5 mg-3 mg(2.5 mg base)/3 mL 3 mL inhalation RQ4H WHILE AWAKE lorazepam 0.5 mg PO BID PRN metformin 500 mg PO BIDWM nebulizers (Compact Compressor Nebulizer) As directed omeprazole 40 mg PO DAILY pen needle, diabetic (Comfort EZ Pen [place]) As directed HPI HPI Gerd and colo screen: Details: Patient is a 54-year-old female with PMH of anxiety, COPD, diabetes, insomnia. Referred by PCP for pre colonoscopy screening and further evaluation of GERD. Patient is accompanied by son. She reports intermittent symptoms of gastroesophageal reflux, including epigastric pain, heartburn, and episodes of regurgitation. The epigastric pain occurs variably and is not clearly associated with meals. Heartburn is managed intermittently with omeprazole, which she does not take daily but uses as needed; she expresses desire to avoid daily medications unless necessary. Relief is partial and short-lived. She has occasional nausea, more pronounced when fasting, and recent onset (approx. 3 months) of intermittent mild dysphagia to solids, described as an itchy sensation in the throat. History significant for a single episode of acute diarrhea lasting one week three weeks ago, resolved spontaneously with a presumed viral etiology, and no current GI bleeding. No recent fever. Appetite is described as variable. Comorbidities include poorly controlled diabetes mellitus?current regimen includes basal and bolus insulin plus metformin?with blood sugars regularly elevated (~300 mg/dL per family), as well as COPD and a remote history of prednisone use. She endorses past weight loss with keto diet; current diet modified for diabetes. No history of colonoscopy or upper endoscopy. Family history notable for colon cancer in father. She also notes slow healing of a recent traumatic abrasion, slow healing attributed to diabetes. No prior surgical complications. Reports prior breast reduction. Patient denies: fever/chills, unintentional wt loss or melena/hematochezia. Social hx: -denies ETOH use - denies recreational drug use -current 1/2 ppd - family hx as below -denies personal hx of CA -denies significant cardiopulmonary history -tolerated anesthesia in the past without difficulty. [facility] Medical History (Updated 02/06/25 @ 16:53 by Cary Barr CNP) Acid reflux Dysphagia Epigastric pain Abrasion Elevated alkaline phosphatase level Colon cancer screening Anxiety History of tobacco use Liver hemangioma Centrilobular emphysema Surgical History Hx of bilateral breast reduction surgery [place] teeth extracted History of tubal ligation Hx of tonsillectomy Family History (Updated 02/06/25 @ 15:16 by Cary Barr CNP) Father Colon cancer Social History Household Members: Spouse and Children Housing: House Do you presently have visiting nurse or other home services: No Patient Tobacco Use Status: Former Tobacco user service: No Review of Systems Const Reports as per HPI ENT Reports as per HPI Card Reports as per HPI Resp Reports as per HPI GI Reports as per HPI Reports as per HPI Physical Exam Vital Signs: Last Vital Signs Pulse 91 02/06/25 14:57 BP 122/70 02/06/25 14:57 Pulse Ox 98 02/06/25 14:57 Oxygen Delivery Method Room Air 02/06/25 14:57 BMI result Body Mass Index 31.2 Const General: healthy appearing, no acute distress and well developed Nutritional Appearance: average body habitus Orientation/consciousness: patient oriented x3 HEENT Head: Yes normal to inspection, Yes normocephalic and Yes atraumatic Face and sinus: Yes normal facial exam Eyes General: appearance normal, both eyes and all related structures Neck Neck: Yes normal visual inspection Resp Effort & Inspection: normal respiratory effort, able to speak in complete sentences, no tracheal deviation and symmetric chest movement Cardio Jugular venous distension: no JVD GI Inspection: Yes normal to inspection, No distended and Yes obesity Palpation (GI): Soft to palpation, not firm, nontender and No hepatosplenomegaly present Auscultation: normal bowel sounds Neuro General: patient oriented x3 Gait exam (Neuro): Normal gait present Psych Appearance: grossly normal Mental Status: mental status grossly normal Speech and movement: Normal speech and movement present Affect: normal affect Attitude: cooperative Thought process: Normal thought process present Thought content: Normal thought content present Insight: Good insight present (Psych) Judgement: Good judgement present (Psych) Assessment & Plan Assessment & Plan (1) Colon cancer screening: Code(s): Z12.11 - Encounter for screening for malignant neoplasm of colon Category: Medical Plan: Due for polyp surveillance colonoscopy. Medications: -prescriptions for laxative tablets and MiraLax sent to pharmacy; instructions for Gatorade purchase and clear liquid diet given. -Understands diabetes medications will need to be held days prior to procedure. Nurse to review med holds per protocol. Patient educated on scheduling process, procedure preparation, including avoiding certain foods and ensuring clear liquid intake Advised on necessity for ride post-procedure due to sedation. (2) Acid reflux: Code(s): K21.9 - Gastro-esophageal reflux disease without esophagitis Category: Medical Qualifiers: Esophagitis presence: esophagitis presence not specified Qualified Code(s): K21.9 - Gastro-esophageal reflux disease without esophagitis Plan: Intermittent heartburn, regurgitation, partial response to PPIs, new onset dysphagia to solids. Additional Testing: - Schedule upper EGD - Barium swallow (to assess structural vs. motility causes for dysphagia) Medication Management: - Start omeprazole daily; take on empty stomach, 30 min before food Lifestyle Recommendations: - Avoid trigger foods (spicy, chocolate, caffeine as tolerated) - Small frequent meals - Remain upright after meals, elevate HOB, avoid tight clothing - Weight management as appropriate Follow-Up: - Reassess after EGD and barium swallow (3) Elevated alkaline phosphatase level: Code(s): R74.8 - Abnormal levels of other serum enzymes Category: Medical Plan: History suggestive of hepatopancreatobiliar etiology, given intermittent RUQ discomfort and elevated Alk phos Additional Testing: - Order RUQ ultrasound - repeat fasting labs Medication Management: - No changes at this time?monitor for acute biliary symptoms Lifestyle Recommendations: - Fat restriction may help if biliary symptoms worsen Follow-Up: - Review US results when available (4) New onset type 2 diabetes mellitus: Code(s): E11.9 - Type 2 diabetes mellitus without complications Category: Medical Plan: Persistent hyperglycemia, insulin resistance/barriers to monitoring, impacts wound healing and increases cassandra-procedural risk Additional Testing: - Request fasting labs (including repeat LFTs due to prior elevation) - Encourage endocrinology consultation Medication Management: - Continued insulin and metformin per current regimen; reassessment after endocrinology evaluation Lifestyle Recommendations: - Reinforce diabetic diet, glucose monitoring (review insurance coverage and options for cheaper strips if barrier persists), weight maintenance Follow-Up: - Coordinate with PCP/endocrine for ongoing DM management (5) Abrasion: Code(s): T14.8XXA - Other injury of unspecified body region, initial encounter Category: Medical Plan: Delayed healing post trauma; no infection Additional Testing: - None indicated; monitor for infection Medication Management: - Continue local wound care, moisturizers (Eucerin, Vaseline, Aquaphor), avoid unnecessary topical steroids Lifestyle Recommendations: - Continue skin hygiene, monitor for erythema or discharge Follow-Up: - Re-examine with PCP if healing stalls or infection symptoms develop Plan Follow-up after endoscopy or sooner as needed Time: I spent a total of 35 minutes on the date of encounter which includes: Preparing to see the patient (reviewed previous documentation, test results and medical history) Performing a medically appropriate exam and/or evaluation Ordering medications, tests, and procedures Documenting clinical information in the health record Orders: Orders Comprehensive [place]. Panel Fast Today R74.8 - Abnormal levels of other serum enzymes US abdomen complete Today R10.13 - Epigastric pain Alkaline Phosphatase Isoenzyme Today R74.8 - Abnormal levels of other serum enzymes [place] barium swallow Today R13.10 - Dysphagia, unspecified Referrals GI Procedure Notification K21.9 - Gastro-esophageal reflux disease without esophagitis, R10.13 - Epigastric pain, R13.10 - Dysphagia, unspecified, Z12.11 - Encounter for screening for malignant neoplasm of colon Medications: New bisacodyl Take per colonoscopy instructions 5 mg PO ONCE 4 tabs 0RF polyethylene glycol 3350 (Miralax) per colonoscopy prep instructions 238 grams PO ONCE 238 grams 0RF Coding Level of Care Code New Pt New Pt Level 3 (45420) Patient Type New Diagnoses Colon cancer screening Z12.11 Gastroesophageal reflux disease, unspecified whether esophagitis present K21.9 Esophagitis presence: esophagitis presence not specified Elevated alkaline phosphatase level R74.8 New onset type 2 diabetes mellitus E11.9 Abrasion T14.8XXA
[2025-02-06 14:57] VITALS: BP 122/70; PULSE 91; O2SAT 98; BMI 31.2
--- OUTSIDE RECORDS SUMMARY | 2025-02-06 17:40 | XMS_ITS | Encounter Summary ---
Author Organization [facility] Address [address] [place] [address] Care Team Providers Care Client Account Manager Name Role Phone Crystal Rendon MD Primary Care Provider [phone] Encounter Details Date Type Department Care Team (Late st Contact Info) Description 09/07/2024 Nurse Triage Adult Medicine [address] [phone] Willie Adams PA [address] [place] [phone] Social History Tobacco Use Types Packs/Day Years Used Date Smoking Tobacco: Former Cigarettes Q uit: 04/26/2021 Smokeless Tobacco: Never Alcohol Use Standard Drinks/Week Comments No 0 (1 standard drink = 0.6 oz pur e alcohol) Comments Unknown Sex and Gender Information Value Date Recorded Sex Assigned at Not on file Legal Sex Female 5:11 PM EST Gender Identity Female 07/29/2024 2:31 AM EDT Sexual Orientation Straight 07/29/2024 2: 31 AM EDT documented as of this encounter Progress Notes * Sylvia Rebolledo RN - 09/29/2024 12:19 PM EDT Pt has visit scheduled for 10/31 * Asya Hanson RN - 09/07/2024 10:58 AM EDT Appt cancelled-called pt left vm to return call documented in this encounter Plan of Treatment Upcoming Encounters Date Type Department Care Team (Late st Contact Info) Description 02/08/2025 8:30 AM EDT Office Visit Adult Medicine [address] [phone] Crystal Rendon MD [address] [place] [address] documented as of this encounter Visit Diagnoses Not on filedocumented in this encounter Care Teams Client Account Manager Relationship Specialty Start Date End Date Crystal Rendon MD [address] [place] [address] PCP - General Internal Medicine 03/13/24 documented as of this encounter
--- OUTSIDE RECORDS SUMMARY | 2025-02-06 17:40 | XMS_ITS | Clinical Summary ---
Author Organization [address] Address [address] [place] [phone] Phone Care Team Providers Care Financial Services Associate Name Role Phone Crystal Rendon MD Primary Care Provider Allergies Active Allergy Reactions Criticality Noted Date Comments Latex 04/27/2017 Other Reaction(s): Rash/Dermatitis Morphine Swelling,Wheezing 04/27/2017 Medications fluticasone HFA (Flovent HFA) 110 mcg/actuation inhaler Inhale 1 Puff into the lungs 2 times daily. 12/23/2022 Active ipratropium-alb uteroL (DUONEB) 0.5-2.5 mg/3 mL nebulizer solution Inhale 3 mL into the lungs 4 times daily. 08/01/2019 Active LORazepam (ATIVAN) 0.5 mg tablet Take 0.5 mg by mouth 2 Times Daily. 07/13/2021 Active alcohol swabs (BD Alcohol Swabs) pads, medicated Active metFORMIN (GLUCOPHAGE) 500 mg tablet Take 1 tablet (500 mg total) by mouth 2 (two) times a day with meals. Active insulin lispro (HumaLOG KwikPen) 100 unit/mL injection pen Inject 2-14 units per scale, <100 0 units, 100-149 2 units, 150-199 4 units, 200-249 6 units, 250-299 8 units, 300-349 10 units, 350-399 12 units, >400 call office/go to the hospital 15 mL 11 03/16/2024 03/16/20 25 Active blood-glucose meter kit 1 each if needed (TID). 1 each 1 07/12/2024 07/13/19 26 Active freestyle (Lancets,Thin) 28 gauge lancets Use 1 lancet to skin TID to check blood sugar. DX:E11.9 100 each 12 07/12/2024 07/13/19 26 Active atorvastatin (LIPITOR) 10 mg tablet TAKE 1 TABLET BY MOUTH EVERY DAY 90 tablet 1 08/17/2024 Active omeprazole (PriLOSEC) [address] capsule TAKE 1 CAPSULE BY MOUTH 1 TIME EACH DAY. DO NOT CRUSH OR CHEW. 90 capsule 1 08/17/2024 Active BD Ultra-Fine Orig Pen Needle 29 gauge x 1/2 needle USE WITH INSULIN PENS 4 TIMES PER DAY 360 each 2 10/20/2024 Active insulin glargine (LANTUS SoloStar) 100 unit/mL (3 mL) injection pen Inject 18 Units under the skin at bedtime. 14 mL 1 10/31/2024 Active blood sugar diagnostic (Contour Next Test Strips) test strip Use to Check blood sugar three times daily 300 each 1 11/22/2024 11/23/19 26 Active Ventolin HFA 90 mcg/actuation inhaler INHALE 2 PUFFS INTO THE LUNGS EVERY 4 HOURS NEEDED FOR COUGH OR WHEEZING. 18 each 4 12/11/2024 Active Active Problems Problem Noted Date Diagnosed Date Other specified chronic obst ructive pulmonary disease ([facility] V24, [facility] V28) 06/09/2024 Chronic obstructive pulmonar y disease with (acute) lower respiratory infection ([facility] V24, [facility] V28) 06/09/2024 Pneumonia, unspecified organism 06/09/2024 Type 2 diabetes mellitus ([facility] V24, [facility] V 28) 06/09/2024 Affective disorder ([facility] V24) 06/09/2024 Osteoarthrosis, localized, primary, hand, right 06/09/2024 Primary osteoarthritis of left hand 06/09/2024 fermenter current use of inhaled steroid 025 fermenter current use of systemic steroids 06/09 Encounter for long-term (cur rent) use of insulin ([facility] V24, [facility] V28) 06/09/2024 Personal history of nicotine dependence 06/09/19 25 History of falling 06/09/2024 Anxiety 02/25/2024 GERD (gastroesophageal reflux disease) 4 Centriacinar emphysema ([facility] V24, [facility] V28 ) 08/12/2019 Migraine 08/12/2019 Insomnia 01/30/2019 Liver hemangioma 06/15/2017 Overview (02/25/2024): S/p MRI 05/2017 Stable: CT Abdomen 10/13/21 Encounters Date Type Department Care Team Description 12/26/2024 Telephone Gastroenterology - [place] [facility] [address] [facility] [address] [place] [address] Lei Dale MD from Last 3 Months Surgical History Surgery Date Site/Laterality Comments TUBAL LIGATION PROCEDURE: HISTORICAL TUBAL LIGATION BREAST REDUCTION PROCEDURE: HI BREAST REDUCTION TONSILLECTOMY PROCEDURE: HISTORICAL TONSILLECTOMY WISDOM TOOTH EXTRACTION PROCEDURE: HISTORICAL WISDOM TEETH EXTRACTION Medical History Medical History Date Comments Anxiety DX:Anxiety GERD (gastroesophageal reflux disease) DX:GERD (gastroesophageal reflux disease) Tobacco abuse 05/06/2017 DX:Tobacco abuse ; COMMENT: Since age 17 Obesity (BMI 30-39.9) 05/06/2017 DX:Obesity (BMI 30-39.9) Liver hemangioma 06/15/2017 DX:Liver sohail ioma; COMMENT: S/p MRI 05/2017 Family History Medical History Relation Name Comments Diabetes Brother Colon cancer Father diabetes Heart attack Mother Relation Name Status Comments Brother Father Mother Social History Tobacco Use Types Packs/Day Years Used Date Smoking Tobacco: Former Cigarettes Q uit: 04/26/2021 Smokeless Tobacco: Never Tobacco Cessation:Counseling Given: Not Answered Alcohol Use Standard Drinks/Week Comments No 0 (1 standard drink = 0.6 oz pur e alcohol) Comments No Sex and Gender Information Value Date Recorded Sex Assigned at Not on file Legal Sex Female 5:11 PM EST Gender Identity Female 07/29/2024 2:31 AM EDT Sexual Orientation Straight 07/29/2024 2: 31 AM EDT Obstetrics History Last Filed Vital Signs Vital Sign Reading Time Taken Comments Blood Pressure 128/70 10/31/2024 9:08 AM EDT Pulse 78 10/31/2024 8:42 AM EDT Temperature 36.4 C (97.5 F) 10/31/2024 8:42 AM EDT Respiratory Rate 16 10/31/2024 8:42 AM EDT Oxygen Saturation 98% 10/31/2024 8:42 AM EDT Inhaled Oxygen Concentration - - Weight 80.7 kg (178 lb) 10/31/2024 8:42 AM EDT Height 157.5 cm (5' 2 ) 10/31/2024 8:42 AM EDT Body Mass Index 32.56 10/31/2024 8:42 AM EDT Plan of Treatment Upcoming Encounters Date Type Department Care Team (Late st Contact Info) Description 02/08/2025 8:30 AM EDT Office Visit Adult Medicine [address] [phone] Crystal Rendon MD [address] [place] [address] Health Maintenance Due Date Last Done Comments Breast Cancer Screening 1970 Colorectal Cancer Screening: Colonoscopy 1970 Diabetes: Annual Foot Exam 1980 Diabetes: Annual Retina Eye Exam 1980 DTaP,Tdap,and Td Vaccines (1 - Tdap) 1989 Hepatitis B Vaccines (1 of 3 - 19+ 3-dose series) 1989 Pneumococcal Vaccine: 50+ Years (1 of 2 - PCV) 1989 Cervical Cancer Screening: P ap Smear 12/01/1991 RSV Immunization Adult Patients (1 - Risk 50-74 years 1-dose series) 2020 Zoster Vaccines (1 of 2) 2020 HIV Screening 04/04/2022 Hepatitis C Screening 04/04/2022 Lung Cancer Screening (Low Dose CT) 04/04/2022 Social Influencers of Health Screening 04/04/2022 Depression Screening 04/26/2024 Diabetes: Blood Sugar Contro l Test (HGBA1C) 12/04/2024 06/06/2024 COVID-19 Vaccine (1 - 4-2 5 season) 2024 Influenza Vaccine (#1) 2024 Diabetes: Annual Urine Albumin-Creatinine Ratio (uACR) 06/06/2025 06/06/2024 Diabetes: Annual GFR (Glomerular Filtration Rate) 06/06/2025 06/06/2024, 01/30/2019 Cholesterol Screening (Lipid Panel) 06/06/2029 06/06/2024, 05/06/2017 HIB Vaccines Aged Out No longer eligi ble based on patient's age to complete this topic HPV Vaccines Aged Out No longer eligi ble based on patient's age to complete this topic Hepatitis A Vaccines Aged Out No long er eligible based on patient's age to complete this topic IPV Vaccines Aged Out No longer eligi ble based on patient's age to complete this topic MMR Vaccines Aged Out No longer eligi ble based on patient's age to complete this topic Meningococcal ACWY Vaccine Aged Out N o longer eligible based on patient's age to complete this topic Meningococcal B Vaccine Aged Out No l onger eligible based on patient's age to complete this topic RSV Immunization Patients Under 20 months Aged Out No longer eligible b ased on patient's age to complete this topic Varicella Vaccines Aged Out No longer eligible based on patient's age to complete this topic Procedures Procedure Name Priority Date/Time Associated Diagnosis Comments MICROALBUMIN CREATININE URINE RATIO Routine 06/06/2024 9:01 AM EST Type 2 diabetes mellitus with other specified complication, with long-term current use of insulin ([facility] V24, [facility] V28) COMPREHENSIVE METABOLIC PANEL Routine 06/06/2024 9:01 AM EST Type 2 diabetes mellitus with other specified complication, with long-term current use of insulin ([facility] V24, [facility] V28) HEMOGLOBIN A1C Routine 06/06/2024 9:01 AM EST Type 2 diabetes mellitus with other specified complication, with long-term current use of insulin ([facility] V24, [facility] V28) LIPID PANEL WITH REFLEX TO DIRECT LDL Routine 06/06/2024 9:01 AM EST Type 2 diabetes mellitus with other specified complication, with long-term current use of insulin ([facility] V24, [facility] V28) from Last 3 Months or Most Recently Relevant to Health Maintenance Results * (ABNORMAL) Lipid panel with reflex to direct LDL (06/06/2024 9:01 AM EST) Cholesterol 265(H) 0 - 200 mg/dL LAB CHEMISTRY METHOD 06/06/2024 10:33 AM EST [facility] Triglycerides 218(H) 0 - 150 mg/dL LAB CHEMISTRY METHOD 06/06/2024 10:33 AM [facility] HDL 32(L) >=40 mg/dL LAB CHEMISTRY METHOD 06/06/2024 10:33 AM [facility] LDL Calculated 189(H) 0 - 100 mg/dL LAB CHEMISTRY METHOD 06/06/2024 10:33 AM [facility] VLDL Cholesterol Frank 43.6 mg/dL LAB CHEMISTRY METHOD 06/06/2024 10:33 AM [facility] Non HDL Chol. (LDL+VLDL) 233(H) <145 mg/dL LAB CHEMISTRY METHOD 06/06/2024 10:33 AM [facility] Chol/HDL Ratio 8.3(H) 0.0 - 4.4 LAB CHEMISTRY METHOD 06/06/2024 10:33 AM [facility] Blood Venous blood specimen / Unknown Venipuncture / Unknown 06/06/2024 9:01 AM EST 06/06/2024 9:01 AM EST us Crystal Rendon MD LAB BLOOD ORDERABLES Final Resul t [facility] [address] [place] [address], * Microalbumin creatinine urine ratio (06/06/2024 9:01 AM EST) Creatinine, Urine 185.0 mg/dL LAB CHEMISTRY METHOD 06/06/2024 10:36 AM [facility] Microalb, Ur 16.0 0.0 - 29.0 mg/L LAB CHEMISTRY METHOD 06/06/2024 10:36 AM [facility] Microalb/Creat Ratio 9 <30 mg/g creat LAB CHEMISTRY METHOD 06/06/2024 10:36 AM [facility] Urine Urine specimen obtained by clean catch procedure / Unknown Non-blood Collection / Unknown 06/06/2024 9:01 AM EST 06/06/2024 9:01 AM EST us Crystal Rendon MD LAB URINE ORDERABLES Final Resul t Performing Organization Address [facility]/ZIP Co de Phone Number [facility] [address] [place] [address], [place] [phone] * (ABNORMAL) Hemoglobin A1c (06/06/2024 9:01 AM EST) Hemoglobin A1C 9.6(H) <6.5 % LAB CHEMISTRY METHOD 06/06/2024 1:14 PM EST [facility] Mean Bld Glu Estim. 229 mg/dL LAB CHEMISTRY METHOD 06/06/2024 1:14 PM [facility] Blood Venous blood specimen / Unknown Venipuncture / Unknown 06/06/2024 9:01 AM EST 06/06/2024 9:01 AM EST us Crystal Rendon MD LAB BLOOD ORDERABLES Final Resul t [facility] [address] [place] [address], [place] [phone] * (ABNORMAL) Comprehensive metabolic panel (06/06/2024 9:01 AM EST) Sodium 135 133 - 145 mmol/L LAB CHEMISTRY METHOD 06/06/2024 10:33 AM [facility] Potassium 4.3 3.5 - 5.5 mmol/L LAB CHEMISTRY METHOD 06/06/2024 10:33 AM [facility] Chloride 99 96 - 110 mmol/L LAB CHEMISTRY METHOD 06/06/2024 10:33 AM [facility] CO2 31 21 - 32 mmol/L LAB CHEMISTRY METHOD 06/06/2024 10:33 AM [facility] Anion Gap 5 3 - 11 LAB CHEMISTRY METHOD 06/06/2024 10:33 AM [facility] Glucose 190(H) 70 - 100 mg/dL LAB CHEMISTRY METHOD 06/06/2024 10:33 AM [facility] BUN 10 5 - 25 mg/dL LAB CHEMISTRY METHOD 06/06/2024 10:33 AM [facility] Creatinine 0.67 0.50 - 1.10 mg/dL LAB CHEMISTRY METHOD 06/06/2024 10:33 AM [facility] eGFR 105 >=60 mL/min/1. 73m2 LAB CHEMISTRY METHOD 06/06/2024 10:33 AM [facility] Comment:Calculation based on the Chronic Kidney Disease Epidemiology Collaboration (CKD-EPI) equation refit without adjustment for race. BUN/Creatinine Ratio 14.9 LAB CHEMISTRY METHOD 06/06/2024 10:33 AM [facility] Calcium 10.0 8.5 - 10.5 mg/dL LAB CHEMISTRY METHOD 06/06/2024 10:33 AM [facility] AST (SGOT) 16 10 - 42 unit/L LAB CHEMISTRY METHOD 06/06/2024 10:33 AM [facility] ALT (SGPT) 30 10 - 60 unit/L LAB CHEMISTRY METHOD 06/06/2024 10:33 AM [facility] Alkaline Phosphatase 127(H) 42 - 121 unit/L LAB CHEMISTRY METHOD 06/06/2024 10:33 AM [facility] Total Protein 7.2 6.0 - 8.0 g/dL LAB CHEMISTRY METHOD 06/06/2024 10:33 AM EST [facility] Albumin 3.5 3.2 - 5.0 g/dL LAB CHEMISTRY METHOD 06/06/2024 10:33 AM EST [facility] Total Bilirubin 0.3 0.0 - 1.4 mg/dL LAB CHEMISTRY METHOD 06/06/2024 10:33 AM EST [facility] Blood Venous blood specimen / Unknown Venipuncture / Unknown 06/06/2024 9:01 AM EST 06/06/2024 9:01 AM EST us Crystal Rendon MD LAB BLOOD ORDERABLES Final Resul t [facility] [address] [place] [address], from Last 3 Months or Most Recently Relevant to Health Maintenance Insurance [facility] Care Teams Financial Services Associate Relationship Specialty Start Date End Date Crystal Rendon MD [address] [place], [place] PCP - General Internal Medicine 03/13/24
== END 2025-02-06 15:43 | disposition home or self-care (01) ==
LOC: HO.HGI 14:49
PROVIDERS: PCP Internal Medicine; Visit Provider Nurse Practitioner Family
DX: Z01.818 Encounter for other preprocedural examination (principal); Z12.11 Encounter for screening for malignant neoplasm of colon; K21.9 Gastro-esophageal reflux disease without esophagitis; R74.8 Abnormal levels of other serum enzymes; E11.9 Type 2 diabetes mellitus without complications; T14.8XXA Other injury of unspecified body region, initial encounter
CPT/HCPCS: 99203

== ENCOUNTER → 2025-02-06 14:48 | Outpatient (BNVA) | payer OTHER, SELFPAY | PROVIDERS: PCP Internal Medicine; Visit Provider Nurse Practitioner Family | DX: Z01.818 Encounter for other preprocedural examination (principal); K21.9 Gastro-esophageal reflux disease without esophagitis; R74.8 Abnormal levels of other serum enzymes; E11.9 Type 2 diabetes mellitus without complications; R10.13 Epigastric pain | CPT/HCPCS: 99202 ==